=== PATIENT | male | born 1945 | race Caucasian/White ===

== ENCOUNTER 2018-05-22 11:08 | Inpatient (IN) | payer OTHER ==
[2018-05-22 11:22] VITALS: BMI 29.7
--- NOTE | 2018-05-22 14:15 | HP ---
COWS - Scale Resting Pulse: 1= [place] 81-100 Sweatin= Chills/Flushing Restless Observation: 1= Difficult to Sit Still Pupil Size: 0= Normal to Room Light Bone or Joint Aches: 1= Mild Discomfort Runny Nose/ Eye Tearin= Nasal Congestion GI Upset > 30mins: 2= Nausea/Diarrhea Tremor Observation: 2= Slight Tremor Visible Yawning Observation: 1= 1-2x During Session Anxiety or Irritability: 1=Feels Anxious/Irritable Goose Flesh Skin: 0=Smooth Skin COWS Score: 11 CIWA Score - CIWA Score Nausea/Vomitin Muscle Tremors: 4-Moderate,w/Arms Extend Anxiety: 4-Mod. Anxious/Guarded Agitation: 1-Slight > Activity Paroxysmal Sweats: No Perspiration Orientation: 1-Uncertain about Date Tacttile Disturbances: 0-None Auditory Disturbances: 0-None Visual Disturbances: 0-None Headache: 2-Mild CIWA-Ar Total Score: 15 Admission ROS [facility] - HPI Chief Complaint: I need help, I'm getting really sick, I need to get help. I can barely work. Allergies/Adverse Reactions: Allergies Allergy/AdvReac Type Severity Reaction Status Date / Time Penicillins Allergy Verified 05/22/18 13:10 History of Present Illness: 73 yo gentleman here for detox from opiates. Patient reports having dental surgery December 2017 and given opiates which he noticed helped his grief (from daughter's suicide). He was given alprazolam by primary doctor. States he wants help to get off both opiates and alprazolam. Denies seizures. He is devastated by 16year old daughter's suicide last year (hit by train). No black outs. Does have a history of being in 12 Step program of for sixteen years - not for alcohol use but had a history of heroin use in his 20s, relapsed with opiates in December 2017 when same was prescribed for him. Patient is prescribed opiates but started taking more than prescribed. He is shaky, nauseous, yawning. Exam Limitations: Clinical Condition - Ebola screening Have you traveled outside of the country in the last 21 days: No (N) Have you had contact with anyone from an Ebola affected area: No Have you been sick,other than usual withdrawal symptoms: No Do you have a fever: No - Review of Systems Constitutional: Loss of Appetite, Malaise, Changes in sleep EENT: reports: Blurred Vision, Tearing, Nose Congestion Respiratory: reports: No Symptoms reported Cardiac: reports: No Symptoms Reported GI: reports: Nausea, Poor Appetite : reports: Dysuria, Frequency Musculoskeletal: reports: Back Pain, Muscle Pain, Neck Pain Integumentary: reports: No Symptoms Reported Neuro: reports: Headache, Tremors Endocrine: reports: No Symptoms Reported Hematology: reports: No Symptoms Reported Psychiatric: reports: Judgement Intact, Mood/Affect Appropiate, Anxious Other Systems: Reviewed and Negative Patient History - Patient Medical History Hx Asthma: No Hx Chronic Obstructive Pulmonary Disease (COPD): No Hx Cancer: No Hx Cardiac Disorders: No Hx Congestive Heart Failure: No Hx Hypertension: Yes (163/123) Hx Hypercholesterolemia: Yes (on meds) Hx Pacemaker: No HX Cerebrovascular Accident: No Hx Seizures: No Hx Dementia: No Hx Diabetes: No Hx Gastrointestinal Disorders: Yes (colitis, GERD) Hx Liver Disease: No Hx Genitourinary Disorders: No Hx Sexually Transmitted Disorders: No Hx Renal Disease (ESRD): No Hx Thyroid Disease: No Hx Human Immunodeficiency Virus (HIV): No Hx Hepatitis C: No Hx Depression: Yes (anxiety 06/29/2017 [age] year old dtr committed suicide) Hx Suicide Attempt: No Hx Schizophrenia: No - Patient Surgical History Past Surgical History: Yes Hx Neurologic Surgery: No Hx Cataract Extraction: No Hx Cardiac Surgery: No Hx Lung Surgery: No Hx Breast Surgery: No Hx Breast Biopsy: No Hx Abdominal Surgery: No Hx Appendectomy: No Hx Cholecystectomy: No Hx Genitourinary Surgery: No Hx Section: No Hx Orthopedic Surgery: Yes (SPINAL FUSION OF L4+L5 ON 10/2003, RIGHT ELBOW FX AT 21YO) Anesthesia Reaction: No - PPD History Previous Implant?: Yes Documented Results: Negative w/o proof Implanted On Prior [facility] Admission?: No PPD to be Administered?: Yes - Reproductive History Patient is a Female of Child Bearing Age (11 -55 yrs old): No (male) - Smoking Cessation Smoking history: Former smoker Have you smoked in the past 12 months: No If you are a former smoker, when did you quit?: 1985 Cigars Per Day: 0 Hx Chewing Tobacco Use: No Initiated information on smoking cessation: No - Substance & Tx. History Hx Alcohol Use: No Hx Substance Use: Yes Substance Use Type: Opiates, Prescribed Hx Substance Use Treatment: No - Substances Abused Alprazolam (Xanax) Route: Oral Frequency: Daily Amount used: two 0.5MG TABLETS Age of first use: 73 Date of Last Use: 05/22/18 hydrocodone Route: Oral Frequency: Daily Amount used: twlve 7.5/325 MG TABLET Age of first use: 73 Date of Last Use: 05/21/18 Oxycodone Route: Oral Frequency: 3-6 times per week (s) Amount used: five 5 mg percocet Age of first use: 73 Date of Last Use: 05/21/18 Family Disease History - Family Disease History Family Disease History: Heart Disease: Mother (, etoh), Other: Father ( , renal disease), Mother, Sister (one - living ), Daughter (16 yr daughter committed suicide; also has healthy 19 yr old) Admission Physical Exam [facility] - Vital Signs Vital Signs: Vital Signs - 24 hr 05/22/18 11:19 Temperature 97.8 F Pulse Rate 80 Respiratory 18 Rate Blood Pressure 163/123 H - Physical General Appearance: Yes: Nourished, Appropriately Dressed, Moderate Distress, Tremorous, Anxious HEENTM: Yes: EOMI, Hearing grossly Normal, Normocephalic, Normal Voice, Pharynx Normal Respiratory: Yes: Normal Breath Sounds, No Respiratory Distress Neck: Yes: No masses,lesions,Nodules Breast: Yes: Breast Exam Deferred Cardiology: Yes: Regular Rhythm, Regular Rate Abdominal: Yes: Soft Genitourinary: Yes: Hesitency Back: Yes: Normal Inspection, Surgical Scar Musculoskeletal: Yes: full range of Motion, Gait Steady, Back pain, Muscle Pain Extremities: Yes: Normal Inspection, Normal Range of Motion, Non-Tender Neurological: Yes: Alert, Motor Strength 5/5, Normal Mood/Affect, Normal Response Integumentary: Yes: Normal Color, Warm Lymphatic: Yes: Within Normal Limits - Diagnostic (1) Opioid dependence with withdrawal Current Visit: Yes Status: Chronic (2) Sedative, hypnotic or anxiolytic dependence with withdrawal, uncomplicated Current Visit: Yes Status: Chronic (3) Colitis Current Visit: Yes Status: Chronic (4) High cholesterol Current Visit: Yes Status: Chronic (5) HTN (hypertension) Current Visit: Yes Status: Chronic Qualifiers: Hypertension type: essential hypertension Qualified Code(s): I10 - Essential (primary) hypertension (6) Neck pain, chronic Current Visit: Yes Status: Chronic (7) GERD (gastroesophageal reflux disease) Current Visit: Yes Status: Chronic Qualifiers: Esophagitis presence: esophagitis presence not specified Qualified Code(s) : K21.9 - Gastro-esophageal reflux disease without esophagitis Cleared for Admission [facility] - Detox or Rehab S Level of Care: Medically Managed Detox Regimen/Protocol: Methadone/Valium [facility] Breath Alcohol Content Breath Alcohol Content: 0 Urine Drug Screen - Results Drug Screen Negative: No Urine Drug Screen Results: OPI-Opiates, BZO-Benzodiazepines, OXY-Oxycodone
[2018-05-22] MEDS ORDERED: IBUPROFEN 400 MG TABLET (FP) PO PRN (14:30)
[2018-05-22] MEDS ORDERED: MENTHOL/PHENOL 1 EACH UD MM PRN (14:30)
[2018-05-22] MEDS ORDERED: MAGNESIUM CITRATE 300 ML BOTTLE PO PRN (14:30)
[2018-05-22] MEDS ORDERED: P-EPHED 60MG/TRIPROLIDI 2.5MG TABLET PO PRN (14:30)
[2018-05-22] MEDS ORDERED: MAGNESIUM HYDROX 2400MG/30ML ORAL SUSPENSION 30 ML CUP PO PRN (14:30)
[2018-05-22] MEDS ORDERED: guaiFENesin/D-METHORPHAN HB 10 ML UNIT-DOSE CUPS PO PRN (14:30)
[2018-05-22] MEDS ORDERED: METHADONE HCL 10 MG TABLET (FOR DETOX USE ONLY) PO ONE ×2 (16:45→23:00)
[2018-05-22] MEDS ORDERED: diazePAM 5 MG TABLET PO ONE (16:45)
[2018-05-22] MEDS ORDERED: MESALAMINE 1200 MG PO SCH (18:00)
[2018-05-22] MEDS: amLODIPine BESYLATE 5 MG TABLET (FP) PO SCH (19:30)
[2018-05-22] MEDS: PANTOPRAZOLE 40 MG TABLET (FP) PO SCH (19:32)
[2018-05-22] MEDS: QUINAPRIL HCL 40 MG TABLET (FP) PO SCH (19:32)
[2018-05-22] MEDS ORDERED: MESALAMINE 800 MG TABLET.DR PO SCH (22:00)
[2018-05-22] MEDS: THIAMINE HCL 100 MG TABLET (FP) PO SCH (22:18)
[2018-05-22] MEDS: ATORVASTATIN CA 10 MG TABLET (FP) PO SCH (22:19)
[2018-05-22] MEDS: diazePAM 5 MG TABLET PO SCH (22:19)
[2018-05-22] MEDS: ACYCLOVIR 400 MG TABLET PO SCH (22:20)
[2018-05-22] MEDS: MELATONIN 5 MG TABLETS PO PRN (22:20)
[2018-05-23] MEDS: diazePAM 5 MG TABLET PO PRN ×4 (00:30→17:48)
[2018-05-23] MEDS: diazePAM 5 MG TABLET PO SCH ×3 (05:33→22:14)
[2018-05-23] MEDS ORDERED: METHADONE HCL 10 MG TABLET (FOR DETOX USE ONLY) PO SCH (10:00)
[2018-05-23] MEDS: QUINAPRIL HCL 40 MG TABLET (FP) PO SCH (10:12)
[2018-05-23] MEDS: amLODIPine BESYLATE 5 MG TABLET (FP) PO SCH (10:13)
[2018-05-23] MEDS: PRENATAL VITAMINS W/ FOLIC ACID TABLET (FP) PO SCH (10:13)
[2018-05-23] MEDS: ACYCLOVIR 400 MG TABLET PO SCH ×2 (10:14→23:09)
[2018-05-23] MEDS: PANTOPRAZOLE 40 MG TABLET (FP) PO SCH (10:14)
--- NOTE | 2018-05-23 10:31 | CONSULT ---
[facility] Psychiatric Consult - Data Date of interview: 05/23/18 Admission source: [employer] Identifying data: Mr Morgan is a 73 years old [place]Citizen [place] male, father of a living 19 years old daughter, retired from post office, domiciled seeking detox treatment for opioid and benzodiazepine Substance Abuse History: Reports history of oxycodone, hydrocodone and xanax use. Refer to addiction counselor's summary for futher information Medical History: Significant for hypertension, dyslipidemia, GERD, ulcerative colitis, history of surgeries(spinal fusion L4, L5 in October 2003 and fracture right elbow in 2009). Psychiatric History: Reports seeing a psychologist for the past 10 years for marriage counseling. Reports that after one of his daughters commited suicide in 2016, he has been feeling depressed and started attending a suicide prevention group along with his . has history of depression and had successful ECT treatment in the past. Six months ago, he was started on opioid medication by one of his physician for pain and claims that helped somewhat with his depression. Two months ago. he was started on Xanax 0.5 mg po BID by another physician for depression/anxiety. Told adjusto writer operator that he became addicted to both and he could not stopped taking them without getting sick. Denies previous psychiatric hospitalization or suicidal attempt. At present, reports feeling depressed, anxious and sleeping poorly Physical/Sexual Abuse/Trauma History: Denies history of emotional, physical or sexual abuse as well as DV relationship. Reports serving in the [employer] from 1963- 1966. Told ramesh that his discharge was honorable Additional Comment: Reports history of one previous arrest on charges of disorderly conduct Mental Status Exam - Mental Status Exam Alert and Oriented to: Time, Place, Person Cognitive Function: Fair Patient Appearance: Well Groomed Mood: Depressed, Anxious Affect: Appropriate Patient Behavior: Cooperative Speech Pattern: Clear Voice Loudness: Normal Thought Process: Intact, Goal Oriented Thought Disorder: Not Present Hallucinations: Denies Suicidal Ideation: Denies Homicidal Ideation: Denies Insight/Judgement: Fair Sleep: Poorly Appetite: Fair Muscle strength/Tone: Normal Gait/Station: Normal Psychiatric Findings - Problem List ([place] 1, 2,3) (1) Grief reaction with prolonged bereavement Current Visit: Yes Status: Chronic (2) MDD (major depressive disorder) Current Visit: Yes Status: Ruled-out (3) Substance induced mood disorder Current Visit: Yes Status: Acute (4) Substance-induced sleep disorder Current Visit: Yes Status: Acute (5) Opioid dependence with withdrawal Current Visit: Yes Status: Acute (6) Sedative, hypnotic or anxiolytic dependence with withdrawal, uncomplicated Current Visit: Yes Status: Acute (7) Colitis Current Visit: Yes Status: Chronic (8) GERD (gastroesophageal reflux disease) Current Visit: Yes Status: Chronic Qualifiers: Esophagitis presence: esophagitis presence not specified Qualified Code(s) : K21.9 - Gastro-esophageal reflux disease without esophagitis (9) HTN (hypertension) Current Visit: Yes Status: Chronic Qualifiers: Hypertension type: essential hypertension Qualified Code(s): I10 - Essential (primary) hypertension (10) Dyslipidemia Current Visit: Yes Status: Chronic - Initial Treatment Plan Initial Treatment Plan: 1) Start Ambien 10 mg po HS prn for insomnia. 2) Continue inpatient detoxification
[2018-05-23 10:40] LABS: HEMATOCRIT 41.1 % (35.4-49); HEMOGLOBIN 14.5 GM/dL (11.7-16.9); MCH 33.6 pg (25.7-33.7); MCHC 35.3 g/dl (32.0-35.9); MEAN CELL VOLUME 95.1 fl (80-96); PLATELET COUNT 264 K/MM3 (134-434); RBC 4.32 M/mm3 (4.00-5.60); RDW 13.8 % (11.9-15.9)
[2018-05-23 11:00] LABS: ALBUMIN 4.3 g/dl (3.4-5.0); ALK PHOS 83 U/L (45-117); ANION GAP 8 MMOL/L (8-16); BILIRUBIN,TOTAL 1.1 mg/dL (0.2-1); BLOOD UREA NITROGEN 20 mg/dL (7-18); CALCIUM 9.2 mg/dL (8.5-10.1); CHLORIDE 101 mmol/L (98-107); CO2 29 mmol/L (21-32); CREATININE 1.6 mg/dL (0.55-1.3); GLUCOSE,RANDOM 89 mg/dL (74-106); POTASSIUM 4.4 mmol/L (3.5-5.1); SGOT/AST 25 U/L (15-37); SGPT/ALT 24 U/L (13-61); SODIUM 138 mmol/L (136-145); TOT PROT 7.5 g/dl (6.4-8.2)
--- NOTE | 2018-05-23 11:16 | PN ---
[facility] CIWA - CIWA Score Nausea/Vomitin-Mild Nausea/No Vomiting Muscle Tremors: 4-Moderate,w/Arms Extend Anxiety: 3 Agitation: 3 Paroxysmal Sweats: 1-Minimal Palms Moist Orientation: 1-Uncertain about Date Tacttile Disturbances: 0-None Auditory Disturbances: 0-None Visual Disturbances: 0-None Headache: 1-Very Mild CIWA-Ar Total Score: 14 S COWS - Scale Resting Pulse: 1= [place] 81-100 Sweatin= Chills/Flushing Restless Observation: 1= Difficult to Sit Still Pupil Size: 0= Normal to Room Light Bone or Joint Aches: 2= Severe Diffuse Aches Runny Nose/ Eye Tearin= Nasal Congestion GI Upset > 30mins: 2= Nausea/Diarrhea Tremor Observation of Outstretched Hands: 2= Slight Tremor Visible Yawning Observation: 1= 1-2x During Session Anxiety or Irritability: 1=Feels Anxious/Irritable Goose Flesh Skin: 0=Smooth Skin COWS Score: 12 S Progress Note (SOAP) Subjective: anxiety restlessness tremor sweat body aches Objective: 05/23/18 11:12 Vital Signs Temperature 96.8 F L 05/23/18 06:00 Pulse Rate 81 05/23/18 06:00 Respiratory Rate 18 05/23/18 06:00 Blood Pressure 132/91 05/23/18 06:00 O2 Sat by Pulse Oximetry (%) Laboratory Last Values WBC 7.0 K/mm3 (4.0-10.0) 05/23/18 07:44 RBC 4.32 M/mm3 (4.00-5.60) 05/23/18 07:44 Hgb 14.5 GM/dL (11.7-16.9) 05/23/18 07:44 Hct 41.1 % (35.4-49) 05/23/18 07:44 MCV 95.1 fl (80-96) 05/23/18 07:44 MCH 33.6 pg (25.7-33.7) 05/23/18 07:44 MCHC 35.3 g/dl (32.0-35.9) 05/23/18 07:44 RDW 13.8 % (11.9-15.9) 05/23/18 07:44 Plt Count 264 K/MM3 (134-434) 05/23/18 07:44 MPV 7.0 fl (7.5-11.1) L 05/23/18 07:44 Sodium 138 mmol/L (136-145) 05/23/18 07:44 Potassium 4.4 mmol/L (3.5-5.1) 05/23/18 07:44 Chloride 101 mmol/L (98-107) 05/23/18 07:44 Carbon Dioxide 29 mmol/L (21-32) 05/23/18 07:44 Anion Gap 8 MMOL/L (8-16) 05/23/18 07:44 BUN 20 mg/dL (7-18) H 05/23/18 07:44 Creatinine 1.6 mg/dL (0.55-1.3) H 05/23/18 07:44 Creat Clearance w eGFR 42.70 (>60) 05/23/18 07:44 Random Glucose 89 mg/dL (74-106) 05/23/18 07:44 Calcium 9.2 mg/dL (8.5-10.1) 05/23/18 07:44 Total Bilirubin 1.1 mg/dL (0.2-1) H 05/23/18 07:44 AST 25 U/L (15-37) 05/23/18 07:44 ALT 24 U/L (13-61) 05/23/18 07:44 Alkaline Phosphatase 83 U/L (45-117) 05/23/18 07:44 Total Protein 7.5 g/dl (6.4-8.2) 05/23/18 07:44 Albumin 4.3 g/dl (3.4-5.0) 05/23/18 07:44 lab noted repeat camp 05/23/18 11:15 Assessment: 05/23/18 11:15 withdrawal sx Plan: continue detox
--- NOTE | 2018-05-23 11:35 | EKG ---
Test Reason : Blood Pressure : / mmHG Vent. Rate : 089 BPM Atrial Rate : 089 BPM P-R Int : 162 ms QRS Dur : 078 ms QT Int : 342 ms P-R-T Axes : 066 -04 060 degrees QTc Int : 416 ms SINUS RHYTHM WITH PREMATURE ATRIAL COMPLEXES WITH ABERRANT CONDUCTION NONSPECIFIC ST ABNORMALITY ABNORMAL ECG NO PREVIOUS ECGS AVAILABLE Confirmed by RASHID MENDIETA MD ([id number]) on 05/23/2018 11:35:18 AM Referred By: Confirmed By:RASHID MENDIETA MD
[2018-05-23] MEDS ORDERED: FLU VACCINE QUAD 60 MCG/0.5 ML (MDV 18-19) IM ONE (12:00)
[2018-05-23] MEDS: ATORVASTATIN CA 10 MG TABLET (FP) PO SCH (22:14)
[2018-05-23] MEDS: ZOLPIDEM TARTRATE 5 MG TABLET PO PRN (22:14)
[2018-05-23] MEDS: THIAMINE HCL 100 MG TABLET (FP) PO SCH (22:14)
[2018-05-24] MEDS: diazePAM 5 MG TABLET PO PRN ×3 (05:59→18:09)
[2018-05-24] MEDS: PANTOPRAZOLE 40 MG TABLET (FP) PO SCH (10:07)
[2018-05-24] MEDS: QUINAPRIL HCL 40 MG TABLET (FP) PO SCH (10:07)
[2018-05-24] MEDS: diazePAM 5 MG TABLET PO SCH ×2 (10:07→22:19)
[2018-05-24] MEDS: amLODIPine BESYLATE 5 MG TABLET (FP) PO SCH (10:08)
[2018-05-24] MEDS: PRENATAL VITAMINS W/ FOLIC ACID TABLET (FP) PO SCH (10:08)
[2018-05-24] MEDS: ACYCLOVIR 400 MG TABLET PO SCH ×2 (10:08→22:19)
[2018-05-24] MEDS: METHADONE HCL 5 MG TABLET (FOR DETOX USE ONLY) PO SCH (10:10)
[2018-05-24] MEDS: MESALAMINE 800 MG TABLET.DR PO SCH ×3 (10:58→22:19)
--- NOTE | 2018-05-24 11:18 | PN ---
[facility] CIWA - CIWA Score Nausea/Vomitin-Mild Nausea/No Vomiting Muscle Tremors: 3 Anxiety: 2 Agitation: 2 Paroxysmal Sweats: 1-Minimal Palms Moist Orientation: 0-Oriented Tacttile Disturbances: 1-Very Mild Itch/Numbness Auditory Disturbances: 0-None Visual Disturbances: 0-None Headache: 1-Very Mild CIWA-Ar Total Score: 11 [facility] COWS - Scale Resting Pulse: 2= [place] 101-120 Sweatin= Chills/Flushing Restless Observation: 1= Difficult to Sit Still Pupil Size: 0= Normal to Room Light Bone or Joint Aches: 1= Mild Discomfort Runny Nose/ Eye Tearin= Nasal Congestion GI Upset > 30mins: 2= Nausea/Diarrhea Tremor Observation of Outstretched Hands: 1= Tremor [place], Not Seen Yawning Observation: 1= 1-2x During Session Anxiety or Irritability: 1=Feels Anxious/Irritable Goose Flesh Skin: 0=Smooth Skin COWS Score: 11 [facility] Progress Note (SOAP) Subjective: patient request stay longer that estimated discharge date is 05/27/18 emotional endurance given issue can be discussed daily patient stated that he has engineering technical writer's name that other person wrote down for him patient shown two pieces of paper wrote engineering technical writer's name discuss relaxation ensure issue can be discuss sweat tremor body aches anxiety Objective: 05/24/18 11:32 Vital Signs Temperature 97.0 F L 05/24/18 09:16 Pulse Rate 103 H 05/24/18 09:16 Respiratory Rate 18 05/24/18 09:16 Blood Pressure 138/85 05/24/18 09:16 O2 Sat by Pulse Oximetry (%) Laboratory Last Values WBC 7.0 K/mm3 (4.0-10.0) 05/23/18 07:44 RBC 4.32 M/mm3 (4.00-5.60) 05/23/18 07:44 Hgb 14.5 GM/dL (11.7-16.9) 05/23/18 07:44 Hct 41.1 % (35.4-49) 05/23/18 07:44 MCV 95.1 fl (80-96) 05/23/18 07:44 MCH 33.6 pg (25.7-33.7) 05/23/18 07:44 MCHC 35.3 g/dl (32.0-35.9) 05/23/18 07:44 RDW 13.8 % (11.9-15.9) 05/23/18 07:44 Plt Count 264 K/MM3 (134-434) 05/23/18 07:44 MPV 7.0 fl (7.5-11.1) L 05/23/18 07:44 Sodium 137 mmol/L (136-145) 05/24/18 07:40 Potassium 4.6 mmol/L (3.5-5.1) 05/24/18 07:40 Chloride 100 mmol/L (98-107) 05/24/18 07:40 Carbon Dioxide 28 mmol/L (21-32) 05/24/18 07:40 Anion Gap 9 MMOL/L (8-16) 05/24/18 07:40 BUN 24 mg/dL (7-18) H 05/24/18 07:40 Creatinine 1.4 mg/dL (0.55-1.3) H 05/24/18 07:40 Creat Clearance w eGFR 49.82 (>60) 05/24/18 07:40 Random Glucose 90 mg/dL (74-106) 05/24/18 07:40 Calcium 9.1 mg/dL (8.5-10.1) 05/24/18 07:40 Total Bilirubin 0.7 mg/dL (0.2-1) 05/24/18 07:40 AST 22 U/L (15-37) 05/24/18 07:40 ALT 23 U/L (13-61) 05/24/18 07:40 Alkaline Phosphatase 92 U/L (45-117) 05/24/18 07:40 Total Protein 7.2 g/dl (6.4-8.2) 05/24/18 07:40 Albumin 4.1 g/dl (3.4-5.0) 05/24/18 07:40 RPR Titer Nonreactive (NONREACTIVE) 05/23/18 07:44 lab noted 05/24/18 11:33 encourage oral fluid Assessment: 05/24/18 11:34 withdrawal sx 05/24/18 11:36 received pharmacist called that [facility] does not have Lialda 1.2 gm qid case discuss with the patient that the patient does not have his own medication with him upon admission pharmacist discontinue "patient's own med" begin asacol HD 800 mg two tabs tid that the medication available at [facility] encourage the patient to bring in own medication encourage the patient to contact with his Liaalvaroa presciber if the patient prefer his own medication 05/24/18 11:37 Plan: continue detox
[2018-05-24 11:21] LABS: ALBUMIN 4.1 g/dl (3.4-5.0); ALK PHOS 92 U/L (45-117); ANION GAP 9 MMOL/L (8-16); BILIRUBIN,TOTAL 0.7 mg/dL (0.2-1); BLOOD UREA NITROGEN 24 mg/dL (7-18); CALCIUM 9.1 mg/dL (8.5-10.1); CHLORIDE 100 mmol/L (98-107); CO2 28 mmol/L (21-32); CREATININE 1.4 mg/dL (0.55-1.3); GLUCOSE,RANDOM 90 mg/dL (74-106); POTASSIUM 4.6 mmol/L (3.5-5.1); SGOT/AST 22 U/L (15-37); SGPT/ALT 23 U/L (13-61); SODIUM 137 mmol/L (136-145); TOT PROT 7.2 g/dl (6.4-8.2)
[2018-05-24] MEDS: THIAMINE HCL 100 MG TABLET (FP) PO SCH (22:19)
[2018-05-24] MEDS: ATORVASTATIN CA 10 MG TABLET (FP) PO SCH (22:19)
[2018-05-24] MEDS: ACETAMINOPHEN 325 MG TABLET (FP) PO PRN (22:23)
[2018-05-24] MEDS: ZOLPIDEM TARTRATE 5 MG TABLET PO PRN (22:23)
[2018-05-25] MEDS: MESALAMINE 800 MG TABLET.DR PO SCH ×3 (07:00→22:13)
[2018-05-25] MEDS: diazePAM 5 MG TABLET PO PRN (07:56)
[2018-05-25] MEDS: ACYCLOVIR 400 MG TABLET PO SCH ×2 (10:12→22:13)
[2018-05-25] MEDS: amLODIPine BESYLATE 5 MG TABLET (FP) PO SCH (10:12)
[2018-05-25] MEDS: METHADONE HCL 5 MG TABLET (FOR DETOX USE ONLY) PO SCH (10:12)
[2018-05-25] MEDS: PANTOPRAZOLE 40 MG TABLET (FP) PO SCH (10:12)
[2018-05-25] MEDS: diazePAM 5 MG TABLET PO SCH ×2 (10:13→22:13)
[2018-05-25] MEDS: PRENATAL VITAMINS W/ FOLIC ACID TABLET (FP) PO SCH (10:13)
[2018-05-25] MEDS: QUINAPRIL HCL 40 MG TABLET (FP) PO SCH (10:13)
--- NOTE | 2018-05-25 11:07 | PN ---
[facility] Progress Note (SOAP) Subjective: anxiety joints pain muscle aches restlessness wants to stay longer for detox counselor singer songwriter and patient discuss aftercare revelation Objective: 05/25/18 11:06 Vital Signs Temperature 97.9 F 05/25/18 09:34 Pulse Rate 80 05/25/18 09:34 Respiratory Rate 18 05/25/18 09:34 Blood Pressure 124/85 05/25/18 09:34 O2 Sat by Pulse Oximetry (%) Laboratory Last Values WBC 7.0 K/mm3 (4.0-10.0) 05/23/18 07:44 RBC 4.32 M/mm3 (4.00-5.60) 05/23/18 07:44 Hgb 14.5 GM/dL (11.7-16.9) 05/23/18 07:44 Hct 41.1 % (35.4-49) 05/23/18 07:44 MCV 95.1 fl (80-96) 05/23/18 07:44 MCH 33.6 pg (25.7-33.7) 05/23/18 07:44 MCHC 35.3 g/dl (32.0-35.9) 05/23/18 07:44 RDW 13.8 % (11.9-15.9) 05/23/18 07:44 Plt Count 264 K/MM3 (134-434) 05/23/18 07:44 MPV 7.0 fl (7.5-11.1) L 05/23/18 07:44 Sodium 137 mmol/L (136-145) 05/24/18 07:40 Potassium 4.6 mmol/L (3.5-5.1) 05/24/18 07:40 Chloride 100 mmol/L (98-107) 05/24/18 07:40 Carbon Dioxide 28 mmol/L (21-32) 05/24/18 07:40 Anion Gap 9 MMOL/L (8-16) 05/24/18 07:40 BUN 24 mg/dL (7-18) H 05/24/18 07:40 Creatinine 1.4 mg/dL (0.55-1.3) H 05/24/18 07:40 Creat Clearance w eGFR 49.82 (>60) 05/24/18 07:40 Random Glucose 90 mg/dL (74-106) 05/24/18 07:40 Calcium 9.1 mg/dL (8.5-10.1) 05/24/18 07:40 Total Bilirubin 0.7 mg/dL (0.2-1) 05/24/18 07:40 AST 22 U/L (15-37) 05/24/18 07:40 ALT 23 U/L (13-61) 05/24/18 07:40 Alkaline Phosphatase 92 U/L (45-117) 05/24/18 07:40 Total Protein 7.2 g/dl (6.4-8.2) 05/24/18 07:40 Albumin 4.1 g/dl (3.4-5.0) 05/24/18 07:40 RPR Titer Nonreactive (NONREACTIVE) 05/23/18 07:44 lab noted Assessment: 05/25/18 11:06 withdrawal sx Plan: continue detox
[2018-05-25] MEDS ORDERED: hydrOXYzine PAMOATE 50 MG CAPSULE (FP) PO ONE (14:15)
[2018-05-25] MEDS: THIAMINE HCL 100 MG TABLET (FP) PO SCH (22:13)
[2018-05-25] MEDS: ATORVASTATIN CA 10 MG TABLET (FP) PO SCH (22:13)
[2018-05-25] MEDS: ZOLPIDEM TARTRATE 5 MG TABLET PO PRN (22:15)
[2018-05-26] MEDS: MESALAMINE 800 MG TABLET.DR PO SCH ×3 (06:17→22:21)
[2018-05-26] MEDS ORDERED: METHADONE HCL 10 MG TABLET (FOR DETOX USE ONLY) PO SCH (10:00)
[2018-05-26] MEDS ORDERED: diazePAM 5 MG TABLET PO SCH (10:00)
[2018-05-26] MEDS: PRENATAL VITAMINS W/ FOLIC ACID TABLET (FP) PO SCH (10:31)
[2018-05-26] MEDS: QUINAPRIL HCL 40 MG TABLET (FP) PO SCH (10:31)
[2018-05-26] MEDS: amLODIPine BESYLATE 5 MG TABLET (FP) PO SCH (10:32)
[2018-05-26] MEDS: ACYCLOVIR 400 MG TABLET PO SCH ×2 (10:32→22:21)
[2018-05-26] MEDS: PANTOPRAZOLE 40 MG TABLET (FP) PO SCH (10:33)
--- NOTE | 2018-05-26 11:52 | PN ---
[facility] Progress Note (SOAP) Subjective: feeling better no tremor less sweat social with peers in day room sleep better at night Objective: 05/26/18 11:51 Vital Signs Temperature 97 F L 05/26/18 07:56 Pulse Rate 67 05/26/18 07:56 Respiratory Rate 20 05/26/18 07:56 Blood Pressure 129/71 05/26/18 07:56 O2 Sat by Pulse Oximetry (%) Laboratory Last Values WBC 7.0 K/mm3 (4.0-10.0) 05/23/18 07:44 RBC 4.32 M/mm3 (4.00-5.60) 05/23/18 07:44 Hgb 14.5 GM/dL (11.7-16.9) 05/23/18 07:44 Hct 41.1 % (35.4-49) 05/23/18 07:44 MCV 95.1 fl (80-96) 05/23/18 07:44 MCH 33.6 pg (25.7-33.7) 05/23/18 07:44 MCHC 35.3 g/dl (32.0-35.9) 05/23/18 07:44 RDW 13.8 % (11.9-15.9) 05/23/18 07:44 Plt Count 264 K/MM3 (134-434) 05/23/18 07:44 MPV 7.0 fl (7.5-11.1) L 05/23/18 07:44 Sodium 137 mmol/L (136-145) 05/24/18 07:40 Potassium 4.6 mmol/L (3.5-5.1) 05/24/18 07:40 Chloride 100 mmol/L (98-107) 05/24/18 07:40 Carbon Dioxide 28 mmol/L (21-32) 05/24/18 07:40 Anion Gap 9 MMOL/L (8-16) 05/24/18 07:40 BUN 24 mg/dL (7-18) H 05/24/18 07:40 Creatinine 1.4 mg/dL (0.55-1.3) H 05/24/18 07:40 Creat Clearance w eGFR 49.82 (>60) 05/24/18 07:40 Random Glucose 90 mg/dL (74-106) 05/24/18 07:40 Calcium 9.1 mg/dL (8.5-10.1) 05/24/18 07:40 Total Bilirubin 0.7 mg/dL (0.2-1) 05/24/18 07:40 AST 22 U/L (15-37) 05/24/18 07:40 ALT 23 U/L (13-61) 05/24/18 07:40 Alkaline Phosphatase 92 U/L (45-117) 05/24/18 07:40 Total Protein 7.2 g/dl (6.4-8.2) 05/24/18 07:40 Albumin 4.1 g/dl (3.4-5.0) 05/24/18 07:40 RPR Titer Nonreactive (NONREACTIVE) 05/23/18 07:44 lab noted Assessment: 05/26/18 11:51 mild withdrawal sx Plan: medically supervised detox
[2018-05-26] MEDS: ATORVASTATIN CA 10 MG TABLET (FP) PO SCH (22:21)
[2018-05-26] MEDS: THIAMINE HCL 100 MG TABLET (FP) PO SCH (22:21)
[2018-05-27] MEDS: MESALAMINE 800 MG TABLET.DR PO SCH ×3 (05:23→21:49)
[2018-05-27] MEDS ORDERED: METHADONE HCL 5 MG TABLET (FOR DETOX USE ONLY) PO SCH (06:00)
[2018-05-27] MEDS: PANTOPRAZOLE 40 MG TABLET (FP) PO SCH (10:25)
[2018-05-27] MEDS: ACYCLOVIR 400 MG TABLET PO SCH ×2 (10:25→21:45)
[2018-05-27] MEDS: amLODIPine BESYLATE 5 MG TABLET (FP) PO SCH (10:25)
[2018-05-27] MEDS: PRENATAL VITAMINS W/ FOLIC ACID TABLET (FP) PO SCH (10:25)
[2018-05-27] MEDS: QUINAPRIL HCL 40 MG TABLET (FP) PO SCH (10:25)
--- NOTE | 2018-05-27 13:57 | HP ---
[facility] Rehab Assess/Revision - Admission History Admitted to Rehab from: [facility] [place] Date of Admission to Rehab: 05/27/18 - Vital signs Vital Signs: Vital Signs Period Temp Pulse Resp BP Sys/Guerin Pulse Ox Last 24 Hr 97.7 F-98.2 F 74-86 16-18 120-146/73-95 - Findings Detox History & Physical reviewed: Yes Concur with findings: Yes Comments/Additional Findings: transferred from detox to rehab admission as per protocol Inpatient Rehab Admission - Initial Determination Are CD services needed?: Yes Free of communicable disease: Yes Not in need of hospitalization: Yes - Rehab Admission Criteria Previous failed treatment: Yes Poor recovery environment: Yes Comorbidities: Yes Lacks judgement: No Patient is meeting Inpatient Rehab admission criteria:: Yes
--- NOTE | 2018-05-27 16:39 | HP ---
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 This is patient's first admission to rehab at [facility]. Patient admitted to rehab for opioid dependence. Medical History: Significant for hypertension, dyslipidemia, GERD, ulcerative colitis, history of surgeries(spinal fusion L4, L5 in October 2003 and fracture right elbow in 2009 Psychiatric History: Patient presents as sad and tearful. Patient's 16 y/o daughter committed suicide in June of 2016. A month after his daughter's suicide he started to attend a suicide prevention group with . Patient reports a family history of major depression disorder. His is currently diagnosed with major depression disorder and has received ECT treatment in the past. Several months ago patient was started on percocet secondary to neck pain and he noticed that it helped him with his depression which eventually caused him to become addicted to the medication. Few months after, his PCP prescribed him xanac for anxiety. Patient has tried lexapro for depression/ anxiety but states it made him feel horrible. At present, patient reports feeling sad and difficulty sleeping. He denies h/o suicide attempt. Physical/Sexual Abuse/Trauma History: denies. Vital Signs: Vital Signs - 24 hr 05/26/18 05/26/18 05/27/18 17:40 22:01 00:30 Temperature 98.2 F 97.9 F Pulse Rate 79 74 Respiratory 16 18 18 Rate Blood Pressure 146/90 142/95 05/27/18 05/27/18 05/27/18 03:30 07:25 09:48 Temperature 97.9 F 97.9 F Pulse Rate 86 77 Respiratory 18 18 18 Rate Blood Pressure 138/91 120/82 05/27/18 13:29 Temperature 98 F Pulse Rate 79 Respiratory 18 Rate Blood Pressure 140/89 Allergies/Adverse Reactions: Allergies Allergy/AdvReac Type Severity Reaction Status Date / Time Penicillins Allergy Verified 05/22/18 13:10 Date of last physical exam: 05/22/18 Concur with the findings of this exam: Yes - Substance Abuse/Tx History Hx Alcohol Use: No Hx Substance Use: Yes Substance Use Type: Opiates Hx Substance Use Treatment: No (This is patient's first rehab.) Mental Status Exam - Mental Status Exam Alert and Oriented to: Time, Place, Person Cognitive Function: Good Patient Appearance: Well Groomed Mood: Sad, Hopeful, Euthymic Affect: Appropriate, Mood Congruent Patient Behavior: Appropriate, Cooperative Speech Pattern: Clear, Appropriate Voice Loudness: Normal Thought Process: Goal Oriented Thought Disorder: Not Present Hallucinations: Denies Suicidal Ideation: Denies Homicidal Ideation: Denies Insight/Judgement: Poor Sleep: Poorly Appetite: Fair Muscle strength/Tone: Normal Gait/Station: Normal Psychiatric Findings - Problem List (Emery 1, 2,3) (1) Opioid dependence Current Visit: Yes Status: Acute (2) Sedative hypnotic or anxiolytic dependence Current Visit: Yes Status: Acute (3) Substance induced mood disorder Current Visit: Yes Status: Acute (4) Substance-induced sleep disorder Current Visit: Yes Status: Acute (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 Detoxification in progress. Will order trazodone 25mg. Benefits and side effects discussed. Patient made aware of the risk of priapism when accepting trazodone. Vebral consent given.
[2018-05-27] MEDS: ATORVASTATIN CA 10 MG TABLET (FP) PO SCH (21:45)
[2018-05-27] MEDS: THIAMINE HCL 100 MG TABLET (FP) PO SCH (21:45)
[2018-05-27] MEDS: MELATONIN 5 MG TABLETS PO PRN (21:46)
[2018-05-27] MEDS ORDERED: traZODone HCL 50 MG TABLET (FP) PO SCH (22:00)
[2018-05-28] MEDS: MESALAMINE 800 MG TABLET.DR PO SCH ×3 (07:39→21:45)
[2018-05-28] MEDS: amLODIPine BESYLATE 5 MG TABLET (FP) PO SCH (10:29)
[2018-05-28] MEDS: PRENATAL VITAMINS W/ FOLIC ACID TABLET (FP) PO SCH (10:29)
[2018-05-28] MEDS: PANTOPRAZOLE 40 MG TABLET (FP) PO SCH (10:29)
[2018-05-28] MEDS: ACYCLOVIR 400 MG TABLET PO SCH ×2 (10:29→21:44)
[2018-05-28] MEDS: QUINAPRIL HCL 40 MG TABLET (FP) PO SCH (12:09)
[2018-05-28] MEDS: LOPERAMIDE HCL 2 MG CAPSULE PO PRN (13:14)
--- NOTE | 2018-05-28 14:05 | PN ---
[facility] Progress Note Note: Pt would like suboxone for h/o opiod use- has diarrhea Vital Signs - 24 hr 05/28/18 05/28/18 05/28/18 00:51 04:30 07:05 Temperature 97.9 F Pulse Rate 65 Respiratory 18 18 18 Rate Blood Pressure 128/84 05/28/18 10:00 Temperature Pulse Rate 75 Respiratory Rate Blood Pressure 141/82 a/p: start suboxone 8mg/day and increase as needed
[2018-05-28] MEDS: BUPRENORPHINE/NALOXONE 8 MG/2 MG FILM PACKET SL SCH (14:44)
--- NOTE | 2018-05-28 15:42 | PN ---
S Progress Note Note: Psychiatric nurse practitioner: Patient reports anxiety on the unit. No anti-anxiety medications currently ordered. Will order vistaril 25mg q4h for anxiety. Will also increase trazodone dose to 50mg qhs.
[2018-05-28] MEDS: ATORVASTATIN CA 10 MG TABLET (FP) PO SCH (21:44)
[2018-05-28] MEDS: THIAMINE HCL 100 MG TABLET (FP) PO SCH (21:44)
[2018-05-28] MEDS: traZODone HCL 50 MG TABLET (FP) PO SCH (21:44)
[2018-05-28] MEDS: MELATONIN 5 MG TABLETS PO PRN (21:46)
[2018-05-28] MEDS ORDERED: traZODone HCL 50 MG TABLET (FP) PO SCH (22:00)
[2018-05-29] MEDS: MESALAMINE 800 MG TABLET.DR PO SCH ×3 (06:33→21:48)
[2018-05-29] MEDS: BUPRENORPHINE/NALOXONE 8 MG/2 MG FILM PACKET SL SCH (10:22)
[2018-05-29] MEDS: PANTOPRAZOLE 40 MG TABLET (FP) PO SCH (10:23)
[2018-05-29] MEDS: PRENATAL VITAMINS W/ FOLIC ACID TABLET (FP) PO SCH (10:23)
[2018-05-29] MEDS: amLODIPine BESYLATE 5 MG TABLET (FP) PO SCH (10:23)
[2018-05-29] MEDS: ACYCLOVIR 400 MG TABLET PO SCH (10:23)
[2018-05-29] MEDS: QUINAPRIL HCL 40 MG TABLET (FP) PO SCH (10:24)
[2018-05-29] MEDS: hydrOXYzine PAMOATE 25 MG CAPSULE (FP) PO PRN ×3 (10:26→21:48)
[2018-05-29] MEDS: THIAMINE HCL 100 MG TABLET (FP) PO SCH (21:47)
[2018-05-29] MEDS: traZODone HCL 50 MG TABLET (FP) PO SCH (21:47)
[2018-05-29] MEDS: ATORVASTATIN CA 10 MG TABLET (FP) PO SCH (21:47)
[2018-05-29] MEDS: MELATONIN 5 MG TABLETS PO PRN (21:49)
[2018-05-30] MEDS: hydrOXYzine PAMOATE 25 MG CAPSULE (FP) PO PRN ×4 (02:19→21:44)
[2018-05-30] MEDS: LOPERAMIDE HCL 2 MG CAPSULE PO PRN ×2 (05:47→14:45)
[2018-05-30] MEDS: MESALAMINE 800 MG TABLET.DR PO SCH ×3 (06:25→21:44)
[2018-05-30] MEDS: BUPRENORPHINE/NALOXONE 8 MG/2 MG FILM PACKET SL SCH (10:03)
[2018-05-30] MEDS: amLODIPine BESYLATE 5 MG TABLET (FP) PO SCH (10:03)
[2018-05-30] MEDS: PANTOPRAZOLE 40 MG TABLET (FP) PO SCH (10:03)
[2018-05-30] MEDS: PRENATAL VITAMINS W/ FOLIC ACID TABLET (FP) PO SCH (10:03)
[2018-05-30] MEDS: QUINAPRIL HCL 40 MG TABLET (FP) PO SCH (10:04)
[2018-05-30] MEDS: ATORVASTATIN CA 10 MG TABLET (FP) PO SCH (21:44)
[2018-05-30] MEDS: traZODone HCL 50 MG TABLET (FP) PO SCH (21:44)
[2018-05-30] MEDS: THIAMINE HCL 100 MG TABLET (FP) PO SCH (21:44)
[2018-05-30] MEDS: MELATONIN 5 MG TABLETS PO PRN (21:45)
[2018-05-31] MEDS: LOPERAMIDE HCL 2 MG CAPSULE PO PRN ×2 (00:59→11:18)
[2018-05-31] MEDS: ACETAMINOPHEN 325 MG TABLET (FP) PO PRN (03:28)
[2018-05-31] MEDS: MESALAMINE 800 MG TABLET.DR PO SCH ×3 (06:57→22:03)
[2018-05-31] MEDS: BUPRENORPHINE/NALOXONE 8 MG/2 MG FILM PACKET SL SCH (10:41)
[2018-05-31] MEDS: PRENATAL VITAMINS W/ FOLIC ACID TABLET (FP) PO SCH (10:41)
[2018-05-31] MEDS: PANTOPRAZOLE 40 MG TABLET (FP) PO SCH (10:41)
[2018-05-31] MEDS: amLODIPine BESYLATE 5 MG TABLET (FP) PO SCH (10:43)
[2018-05-31] MEDS: QUINAPRIL HCL 40 MG TABLET (FP) PO SCH (10:43)
--- NOTE | 2018-05-31 11:16 | PN ---
[facility] Progress Note Note: Pt on suboxone here- started 2 days ago.Doing well. Says that the dose is sufficient. Pt states he would like to continue with methadone at discharge- pt will talk to counselor re enrolling in program in [place]. Pt reaffirms that he will not continue with the oxycodone that he has been recieving by his PCP. pt had been receiving percocets from PCP following the of his daughter- pt states that he will continue methadone only- has been on this in the past in a program in the [place]. Others' Prescriptions Patient Name: Ziggy Morgan Date: 1945 Address: [address] [place] [address] Sex: Male Rx Written Rx Dispensed Drug Quantity Days Supply Prescriber Name 05/03/2018 05/03/2018 alprazolam 0.5 mg tablet 60 30 Charles Amos 04/30/2018 04/30/2018 diazepam 5 mg tablet 2 1 Casey Alfonso 04/30/2018 04/30/2018 hydrocodone-acetaminophen 7.5-325 mg tablet 90 30 Casey Alfonso 04/06/2018 04/06/2018 hydrocodone-acetaminophen 7.5-325 mg tablet 60 30 Angel Gaxiola MD 03/23/2018 03/23/2018 oxycodone-acetaminophen 5-325 mg tab 60 30 Angel Gaxiola MD 03/15/2018 03/15/2018 alprazolam 0.5 mg tablet 60 30 Charles Amos 02/26/2018 02/27/2018 oxycodone-acetaminophen 5-325 mg tablet 12 1 Elia Meyers DDS 02/19/2018 02/20/2018 oxycodone-acetaminophen 5-325 mg tablet 30 3 Eder Ortega DDS 02/12/2018 02/13/2018 oxycodone-acetaminophen 5-325 mg tablet 30 3 Eder Ortega DDS 02/08/2018 02/08/2018 oxycodone-acetaminophen 5-325 mg tablet 16 1 Elia Meyers DDS 02/05/2018 02/05/2018 oxycodone-acetaminophen 5-325 mg tablet 25 3 Eder Ortega DDS 02/03/2018 02/03/2018 oxycodone-acetaminophen 5-325 mg tablet 10 2 Taurus Vaz DDS 01/29/2018 01/29/2018 oxycodone-acetaminophen 5-325 mg tablet 25 3 Eder Ortega DDS
[2018-05-31] MEDS: hydrOXYzine PAMOATE 25 MG CAPSULE (FP) PO PRN (14:43)
[2018-05-31] MEDS: ATORVASTATIN CA 10 MG TABLET (FP) PO SCH (22:03)
[2018-05-31] MEDS: traZODone HCL 50 MG TABLET (FP) PO SCH (22:03)
[2018-05-31] MEDS: THIAMINE HCL 100 MG TABLET (FP) PO SCH (22:04)
[2018-05-31] MEDS: MELATONIN 5 MG TABLETS PO PRN (22:05)
[2018-06-01] MEDS: MESALAMINE 800 MG TABLET.DR PO SCH ×3 (06:12→21:40)
[2018-06-01] MEDS: PANTOPRAZOLE 40 MG TABLET (FP) PO SCH (10:48)
[2018-06-01] MEDS: PRENATAL VITAMINS W/ FOLIC ACID TABLET (FP) PO SCH (10:48)
[2018-06-01] MEDS: BUPRENORPHINE/NALOXONE 8 MG/2 MG FILM PACKET SL SCH (10:49)
[2018-06-01] MEDS: amLODIPine BESYLATE 5 MG TABLET (FP) PO SCH (10:49)
[2018-06-01] MEDS: QUINAPRIL HCL 40 MG TABLET (FP) PO SCH (10:50)
--- NOTE | 2018-06-01 15:30 | PN ---
[facility] Progress Note Note: PT C/O SEVERE CHRONIC DIARRHEA MULTIPLE TIMES DURING THE DAY PT ALSO C/O DRY MOUTH BUT SAYS HE IS DRINKING ENOUGH FLUIDS . REPORTS IMODIUM NOT EFFECTIVE. PT REPORTS HX OF ULCERATIVE COLITIS AND TAKES IMODIUM AT HOME A ROUTINE. PT ALSO STATES HX OF SEVERE ACID REFLUX. PT STATES HE HAS A PRIMARY CARE DOCTOR, DR. MARINO ANTONY AND A GI DOCTOR, DR. NIKO NELSON- A TEAM IN [place], [place] THAT MANAGES HIS CARE. Vital Signs - 24 hr 06/01/18 06/01/18 06/01/18 00:30 03:30 07:09 Temperature 97.8 F Pulse Rate 94 H Respiratory 18 18 17 Rate Blood Pressure 156/85 Laboratory Tests 05/23/18 05/23/18 05/23/18 07:44 07:44 07:44 WBC 7.0 RBC 4.32 Hgb 14.5 Hct 41.1 MCV 95.1 MCH 33.6 MCHC 35.3 RDW 13.8 Plt Count 264 MPV 7.0 L Sodium 138 Potassium 4.4 Chloride 101 Carbon Dioxide 29 Anion Gap 8 BUN 20 H Creatinine 1.6 H Creat Clearance w eGFR 42.70 Random Glucose 89 Calcium 9.2 Total Bilirubin 1.1 H AST 25 ALT 24 Alkaline Phosphatase 83 Total Protein 7.5 Albumin 4.3 RPR Titer Nonreactive 05/24/18 07:40 WBC RBC Hgb Hct MCV MCH MCHC RDW Plt Count MPV Sodium 137 Potassium 4.6 Chloride 100 Carbon Dioxide 28 Anion Gap 9 BUN 24 H Creatinine 1.4 H Creat Clearance w eGFR 49.82 Random Glucose 90 Calcium 9.1 Total Bilirubin 0.7 AST 22 ALT 23 Alkaline Phosphatase 92 Total Protein 7.2 Albumin 4.1 RPR Titer SLIGHT YELLOWING OF SKIN SCLERA SLIGHTLY ICTERIC HX UC HX JAUNDICE IN THE PAST PLAN:IMODIUM PRN MONITOR PT STATUS FLUIDS TOLERATED FOLLOW UP WITH WORSENING SYMPTOMS
[2018-06-01] MEDS: LOPERAMIDE HCL 2 MG CAPSULE PO PRN (16:06)
[2018-06-01] MEDS: MAG HYDROX/AL HYDROX/SIMETH 30 ML UNIT-DOSE CUP PO PRN (16:15)
[2018-06-01] MEDS: ATORVASTATIN CA 10 MG TABLET (FP) PO SCH (21:40)
[2018-06-01] MEDS: THIAMINE HCL 100 MG TABLET (FP) PO SCH (21:40)
[2018-06-01] MEDS: traZODone HCL 50 MG TABLET (FP) PO SCH (21:40)
[2018-06-01] MEDS: MELATONIN 5 MG TABLETS PO PRN (21:40)
[2018-06-01] MEDS: hydrOXYzine PAMOATE 25 MG CAPSULE (FP) PO PRN (21:40)
[2018-06-02] MEDS: MESALAMINE 800 MG TABLET.DR PO SCH ×2 (07:00→13:20)
[2018-06-02] MEDS: MAG HYDROX/AL HYDROX/SIMETH 30 ML UNIT-DOSE CUP PO PRN ×2 (07:02→13:21)
[2018-06-02] MEDS: hydrOXYzine PAMOATE 25 MG CAPSULE (FP) PO PRN (07:04)
[2018-06-02 10:22] LABS: ALBUMIN 3.8 g/dl (3.4-5.0); ALK PHOS 66 U/L (45-117); ANION GAP 13 MMOL/L (8-16); BILIRUBIN,TOTAL 1.2 mg/dL (0.2-1); BLOOD UREA NITROGEN 53 mg/dL (7-18); CALCIUM 9.3 mg/dL (8.5-10.1); CHLORIDE 102 mmol/L (98-107); CO2 21 mmol/L (21-32); GLUCOSE,RANDOM 104 mg/dL (74-106); POTASSIUM 4.2 mmol/L (3.5-5.1); SGOT/AST 31 U/L (15-37); SGPT/ALT 26 U/L (13-61); SODIUM 136 mmol/L (136-145); TOT PROT 7.2 g/dl (6.4-8.2)
[2018-06-02] MEDS: PANTOPRAZOLE 40 MG TABLET (FP) PO SCH (10:36)
[2018-06-02] MEDS: amLODIPine BESYLATE 5 MG TABLET (FP) PO SCH (10:39)
[2018-06-02] MEDS: QUINAPRIL HCL 40 MG TABLET (FP) PO SCH (10:39)
[2018-06-02] MEDS: BUPRENORPHINE/NALOXONE 8 MG/2 MG FILM PACKET SL SCH (10:40)
[2018-06-02] MEDS: PRENATAL VITAMINS W/ FOLIC ACID TABLET (FP) PO SCH (10:42)
[2018-06-02] MEDS: LOPERAMIDE HCL 2 MG CAPSULE PO PRN (10:53)
--- NOTE | 2018-06-02 12:49 | PN ---
[facility] Progress Note Note: PT IS A 73 Y/O MALE ADMITTED TO REHAB AFTER COMPLETING DETOX ON ON 05/27. PT HAS A HX OF OPIOID AND SEDATIVE DEPENDENCE, HTN. DYSLIPIDEMIA,GERD AND ULCERATIVE COLITIS. PT REPORTS NAUSEA/VOMITING TWICE TODAY. PT HAS BEEN C/O SEVERE ONGOING WATERY STOOL SINCE "I GOT HERE AND AT HOME BEFORE I GOT HERE". PT ADMITTED TO DETOX ON 05/22/18. PT STATES DIARRHEA IS SOMETIMES EVERY 5 - 15 MINS OF WATERY STOOL. PT ALSO C/O DIZZINESS, HEARTBURN, FEELING OF DRY MOUTH, WEAKNESS,FATIGUE AND ON/ OFF CONFUSION. Vital Signs 06/02/18 06/02/18 06:59 10:00 Temperature 98.9 F Pulse Rate 102 H 91 H Respiratory 18 Rate Blood Pressure 124/74 93/66 Laboratory Tests 05/23/18 05/23/18 05/23/18 07:44 07:44 07:44 WBC 7.0 RBC 4.32 Hgb 14.5 Hct 41.1 MCV 95.1 MCH 33.6 MCHC 35.3 RDW 13.8 Plt Count 264 MPV 7.0 L Sodium 138 Potassium 4.4 Chloride 101 Carbon Dioxide 29 Anion Gap 8 BUN 20 H Creatinine 1.6 H Creat Clearance w eGFR 42.70 Random Glucose 89 Calcium 9.2 Total Bilirubin 1.1 H AST 25 ALT 24 Alkaline Phosphatase 83 Ammonia Total Protein 7.5 Albumin 4.3 RPR Titer Nonreactive 05/24/18 06/02/18 06/02/18 07:40 07:00 07:00 WBC RBC Hgb Hct MCV MCH MCHC RDW Plt Count MPV Sodium 137 136 Potassium 4.6 4.2 Chloride 100 102 Carbon Dioxide 28 21 Anion Gap 9 13 BUN 24 H 53 H Creatinine 1.4 H 4.0 H Creat Clearance w eGFR 49.82 14.83 Random Glucose 90 104 Calcium 9.1 9.3 Total Bilirubin 0.7 1.2 H AST 22 31 ALT 23 26 Alkaline Phosphatase 92 66 Ammonia 23.10 Total Protein 7.2 7.2 Albumin 4.1 3.8 RPR Titer INCREASING ELEVATION OF BUN/CREATININE AND TOTAL BILIRUBIN. AMMONIA LEVEL IS WNL IMPRESSION;ULCERATIVE COLITIS FLARE UP RENAL INSUFFICIENCY-ABNORMAL RENAL FUNCTION TEST R/O OTHER PATHOLOGY PLAN;FOLLOW UP AT [facility] VIA AMBULANCE FOR MEDICAL EVALUATION AND POSSIBLE TREATMENT. PT MAY RETURN TO COMPLETE REHAB AFTER TREATMENT. ADDENDUM:PT IS CURRENTLY ON SUBOXONE BUT STATES HE IS CONSIDERING METHADONE MAINTENANCE AFTER DISCHARGE.
[2018-06-02 13:13] VITALS: BP 98/69; PULSE 96; TEMP 97.8
[2018-06-02] MEDS ORDERED: BISMUTH SUBSALICYLATE 262 MG/15 ML BTL PO SCH (13:45)
[2018-06-02] MEDS ORDERED: QUINAPRIL HCL 5 MG TABLET (FP) PO SCH (15:50)
== END 2018-06-02 23:55 | disposition short-term general hospital (02) | DRG 895 ==
LOC: YASAS 11:08 → Y6N 15:11 → Y5N 05-27 13:11
PROVIDERS: ATTEND Psychiatry & Neurology Psychiatry
PROC: HZ42ZZZ Group Counseling for Substance Abuse Treatment, Cognitive-Behavioral (ICD-10-PCS; principal; 2018-05-22)
PROC: HZ2ZZZZ Detoxification Services for Substance Abuse Treatment (ICD-10-PCS; 2018-05-27)
DX: F11.23 Opioid dependence with withdrawal (principal); F19.282 Other psychoactive substance dependence with psychoactive substance-induced sleep disorder; F33.9 Major depressive disorder, recurrent, unspecified; K51.90 Ulcerative colitis, unspecified, without complications; F13.230 Sedative, hypnotic or anxiolytic dependence with withdrawal, uncomplicated; F41.9 Anxiety disorder, unspecified; F19.24 Other psychoactive substance dependence with psychoactive substance-induced mood disorder; I10 Essential (primary) hypertension; E78.5 Hyperlipidemia, unspecified; K21.9 Gastro-esophageal reflux disease without esophagitis; N28.9 Disorder of kidney and ureter, unspecified; R19.7 Diarrhea, unspecified; F43.29 Adjustment disorder with other symptoms; Z87.891 Personal history of nicotine dependence
CPT/HCPCS: 36415; 80053; 82140; 85027; 86593; 90688; 93005; 93010; G0008

== ENCOUNTER 2018-06-02 14:07 | Inpatient (IN) | payer OTHER ==
--- NOTE | 2018-06-02 15:18 | PDOC ---
History of Present Illness - General Chief Complaint: Diarrhea Stated Complaint: Revisit, Lab Variance History Source: Patient Exam Limitations: No Limitations - History of Present Illness Initial Comments: 06/02/18 16:43 This is a 73 year old male with a history of substance abuse, alcohol abuse hx, ulcerative colitis (on mesalamine), sent from [facility] due to a 2 week history of diarrhea, also found to have a creatinine of 4. Creatinine on 05/24 was 1.4. Denies fever, chills, n, v, abdominal pain, sick contacts, sore throat, cough, chest pain, sob, leg swelling. Patient denies alcohol use, smoking. In detox for percocet. Last colonoscopy was wnl, and less that 6 yrs ago. Denies change/ new medication. Denies nsaid use. PMH: ulcerative colitis, hypertension, hyperlipidemia PSHx: none Social: alcohol (quit 30yrs ago) and substance abuse (heroin) quit 30yrs ago and restarted this summer with percocet 06/02/18 17:03 Past History - Past Medical History Allergies/Adverse Reactions: Allergies Allergy/AdvReac Type Severity Reaction Status Date / Time Penicillins Allergy Verified 05/22/18 13:10 Home Medications: Ambulatory Orders Acyclovir [Zovirax -] 400 mg PO BID 05/22/18 Misael/D3/Mag11/Zinc/Pl[employer]othes [employer] Officer/Tristen/Bor [Caltrate 600+D Plus Tablet] 600 mg PO DAILY 10/04 Cholecalciferol (Vitamin D3) [Vitamin D3 -] 400 unit PO DAILY 05/22/18 Hydrocodone/Acetaminophen [Hydrocodone-Acetamin 7.5-325] 1 each PO TID 05/22/18 Mesalamine [Lialda] 1.2 gm PO QID 05/22/18 Pantoprazole Sodium [Protonix -] 40 mg PO DAILY 05/22/18 Vitamin D3/Folic Acid [Roxifol-D Tablet] 500 unit PO DAILY 05/22/18 Amlodipine Besylate 5 mg PO DAILY #14 tablet 05/26/18 Atorvastatin Calcium [Lipitor] 10 mg PO HS #14 tablet 05/26/18 Quinapril HCl [Accupril -] 40 mg PO DAILY #14 tablet 05/26/18 Asthma: No Cancer: No Cardiac Disorders: No CVA: No COPD: No CHF: No Dementia: No Diabetes: No GI Disorders: Yes (ulcerative colitis, GERD) Disorders: No HTN: Yes (BP:140/89) Hypercholesterolemia: Yes (on meds) Kidney Stones: No Liver Disease: No Seizures: No Thyroid Disease: No - Surgical History Abdominal Surgery: No Appendectomy: No Cardiac Surgery: No Cholecystectomy: No Lung Surgery: No Neurologic Surgery: No Orthopedic Surgery: Yes (SPINAL FUSION OF L4+L5 ON 10/2003, RIGHT ELBOW FX AT 21 yrs) - Reproductive History Testicular Surgery: No - Suicide/Smoking/Psychosocial Hx Smoking History: Current every day smoker Have you smoked in the past 12 months: No If you are a former smoker, when did you quit?: 1985 Cigars Per Day: 0 Information on smoking cessation initiated: No Hx Alcohol Use: Yes Drug/Substance Use Hx: Yes Substance Use Type: Opiates Hx Substance Use Treatment: No (This is patient's first rehab.) Review of Systems - Review of Systems Able to Perform ROS?: Yes Is the patient limited Swiss proficient: No Constitutional: No: Chills, Diaphoresis, Fever, Loss of Appetite, Weakness Respiratory: No: Cough, Orthopnea, Shortness of Breath, Wheezing, Productive cough Cardiac (ROS): No: Chest Pain, Edema, Irregular Heart Rate ABD/GI: Yes: Diarrhea (watery, non bloody), Abdominal cramping. No: Abdominal Distended, Abd. Pain w/ defecation, Blood Streaked Bowels, Constipated, Difficulty Swallowing, Nausea, Poor Appetite, Poor Fluid Intake, Vomiting : No: Dysuria, Discharge Musculoskeletal: No: Back Pain, Muscle Weakness Integumentary: No: Change in Color, Change in Hair/Nails, Erythema, Pruritus, Rash, Sweating Neurological: No: Headache, Numbness, Weakness, Unsteady Gait Endocrine: No: Excessive Sweating Hematologic/Lymphatic: No: Anemia *Physical Exam - Vital Signs Last Vital Signs Temp Pulse Resp BP Pulse Ox 98.7 F 87 18 103/71 99 06/02/18 14:25 06/02/18 14:25 06/02/18 14:25 06/02/18 14:25 06/02/18 14:25 - Physical Exam General Appearance: Yes: Appropriately Dressed HEENT: positive: EOMI, FREDI Respiratory/Chest: positive: Lungs Clear, Normal Breath Sounds. negative: Chest Tender, Accessory Muscle Use, Crackles, Rhonchi, Wheezing Cardiovascular: positive: Regular Rhythm, Regular Rate, S1, S2 Gastrointestinal/Abdominal: positive: Normal Bowel Sounds, Flat, Soft. negative : Tender Musculoskeletal: positive: Normal Inspection Extremity: positive: Normal Range of Motion Integumentary: positive: Normal Color Neurologic: positive: Fully Oriented, Normal Mood/Affect ED Treatment Course - LABORATORY CBC & Chemistry Diagram: 06/02/18 15:17 06/02/18 15:17 Medical Decision Making - Medical Decision Making 06/02/18 16:51 This is a 73 year old male with a history of substance and hx of alcohol abuse, and ulcerative colitis, who presents with diarrhea x2 weeks and creatinine of 4.1. R/o acute colits flare, c, diff, vs pancreatitis, viral/bacterial gastroenteritis, vs opiod withdrawal vs other acute abdominal pathology. #acute kidney injury: -ua, urine creatinine, urine protein; ratio, urine electrolytes -renal/bladder US pending -renal consulted #Diarrhea: -cbc, cmp, lipase, mg -IVF -c diff -abdominal non contrast CT 06/02/18 18:10 -CT abdomen with gastric fluid consistent with diarrhea; no acute abdominal pathology -#### although from my read; there are some pill like object in stomach and small intestine; will get Tylenol; salicylic; iron level -case discussed with Dr. Parham who accepts patient *DC/Admit/Observation/Transfer Diagnosis at time of Disposition: Acute kidney failure - Discharge Dispostion Decision to Admit order: Yes - Referrals Referrals: Charles Amos MD [Primary Care Provider] - - Patient Instructions - Post Discharge Activity
[2018-06-02 15:24] LABS: BASO % 0.5 % (0-2.0); EOS % 1.1 % (0-4.5); HEMATOCRIT 39.3 % (35.4-49); HEMOGLOBIN 13.4 GM/dL (11.7-16.9); MCH 32.7 pg (25.7-33.7); MCHC 34.2 g/dl (32.0-35.9); MEAN CELL VOLUME 95.8 fl (80-96); MONO % 12.2 % (3.8-10.2); NEUT % 73.2 % (42.8-82.8); PLATELET COUNT 230 K/MM3 (134-434); RBC 4.11 M/mm3 (4.00-5.60); RDW 14.1 % (11.9-15.9); WHITE BLOOD COUNT 5.9 K/mm3 (4.0-10.0)
[2018-06-02 15:41] LABS: ALBUMIN 3.6 g/dl (3.4-5.0); ALK PHOS 62 U/L (45-117); ANION GAP 10 MMOL/L (8-16); BLOOD UREA NITROGEN 60 mg/dL (7-18); CALCIUM 9.3 mg/dL (8.5-10.1); CHLORIDE 98 mmol/L (98-107); CO2 23 mmol/L (21-32); CREATININE 4.1 mg/dL (0.55-1.3); GLUCOSE,RANDOM 115 mg/dL (74-106); LIPASE 102 U/L (73-393); MAGNESIUM 2.2 mg/dL (1.8-2.4); POTASSIUM 4.1 mmol/L (3.5-5.1); SGOT/AST 36 U/L (15-37); SGPT/ALT 27 U/L (13-61); SODIUM 131 mmol/L (136-145); TOT PROT 6.9 g/dl (6.4-8.2)
[2018-06-02 16:07] LABS: COCAINE, UR NEGATIVE ng/ml (CUTOFF=300); OPIATES, URI NEGATIVE ng/ml (CUTOFF=300); PHENCYCLIDINE,URINE NEGATIVE ng/ml (CUTOFF=25); URINE AMPHETAMINES NEGATIVE ng/ml (CUTOFF=500); URINE BARBITURATES NEGATIVE ng/ml (CUTOFF=200)
[2018-06-02 16:10] LABS: METHADONE, UR POSITIVE ng/ml (CUTOFF=300); URINE BENZODIAZEPINES POSITIVE ng/ml (CUTOFF=200)
[2018-06-02] MEDS ORDERED: ACETAMINOPHEN 1000 MG/100 ML VIAL (NON FORMULARY) IVPB ONE (16:20)
[2018-06-02] MEDS ORDERED: SODIUM CHLORIDE 1,000 ML IV STA (16:20)
--- NOTE | 2018-06-02 16:22 | PDOC ---
Attending Attestation - Resident Resident Name: Vidhi Barba - ED Attending Attestation I have performed the following: I have examined & evaluated the patient, The case was reviewed & discussed with the resident, I agree w/resident's findings & plan, Exceptions are as noted - HPI HPI: 06/02/18 16:18 73 M with h/o HTN, HLD, UC, GERD, depression, admitted to [facility] for opiate detox, presenting to ED for abnormal labs and diarrhea. Pt reports that since he was admitted to [facility] last week, he has been having persistent diarrhea. He reports multiple watery stools per day. No BRBPR, no dark stools. No N/V. Endorses abdominal cramps. Denies F/C. Denies CP/SOB. Pt had routine labs done at [facility] today that showed an increase in his creatinine to 4.0. - Physicial Exam PE: 06/02/18 16:20 "GENERAL: Awake, alert, and fully oriented, in no acute distress. HEAD: No signs of trauma EYES: PERRLA, EOMI, sclera anicteric, conjunctiva clear ENT: Auricles normal inspection, hearing grossly normal, nares patent, oropharynx clear without exudates. Moist mucosa NECK: Nontender, no stepoffs, Normal ROM, supple, no lymphadenopathy, JVD, or masses LUNGS: Breath sounds equal, clear to auscultation bilaterally. No wheezes, and no crackles HEART: Regular rate and rhythm, normal S1 and S2, no murmurs, rubs or gallops ABDOMEN: + hyperactive bowel sounds. + epigastric TTP, No guarding, no rebound. No masses EXTREMITIES: Normal range of motion, no edema. No clubbing or cyanosis. No cords, erythema, or tenderness NEUROLOGICAL: Cranial nerves II through XII intact. 5/5 strength and sensation in all extremities, Normal speech, normal gait, normal cerebellar function SKIN: Warm, Dry, normal turgor, no rashes or lesions noted. - Medical Decision Making 06/02/18 16:20 73 M with diarrhea x 1 week, likely 2/2 opiate withdrawal as pt is currently detoxing. Also consider UC flare, though pt with relatively benign abdomen. Labs at [facility] showed AMIE with Cr 4.0. Possibly 2/2 volume depletion. - Labs, urine lytes - CTAP non-con - IVF, tylenol - Admit - Renal c/s 06/02/18 17:31 Labs with Cr 4.1, otherwise unremarkable CT reveals multiple radio-opaque objects in stomach. Suspicious for ?pills. Pt denies ingesting any tablets while in ED or prior to arrival. Unclear if this was an intentional ingestion of pills. Possible stuffing. Pt adamantly denies attempting to hurt himself. Denies any thoughts of suicide, denies HI/AVH. Pt not exhibiting any signs or symptoms of acute intoxication at this time. Tylenol and salicylate levels sent. Will check Iron level as well. Pt's Utox positive for benzos and methadone. Pt admitted to Dr. Parham
[2018-06-02] MEDS ORDERED: ACETAMINOPHEN INJECTION 100 ML IVPB ONE (16:24)
[2018-06-02] MEDS ORDERED: SODIUM CHLORIDE 1,000 ML IV SCH (16:45)
[2018-06-02 16:47] LABS: URINE APPEARANCE CLOUDY; URINE BILIRUBIN NEGATIVE (<2.0 mg/dL); URINE COLOR AMBER; URINE GLUCOSE (UA) NEGATIVE (NEGATIVE); URINE KETONE NEGATIVE (NEGATIVE); URINE LEUK ESTERASE NEGATIVE (NEGATIVE); URINE NITRITE NEGATIVE (NEGATIVE); URINE PROTEIN 1+ (NEGATIVE); URINE UROBILINOGEN NEGATIVE mg/dL (0.2-1.0)
[2018-06-02 16:51] LABS: RATIO URIN PROTEIN/URIN CREAT 0.24 MG/DL
[2018-06-02 17:02] LABS: EPI CELLS RARE /HPF (FEW); GRANULAR CASTS 3 /lpf; URINE MUCUS RARE
--- NOTE | 2018-06-02 20:06 | HP ---
Admitting History and Physical - Primary Care Physician PCP: Abhishek Parham - Admission History of Present Illness: 73 year old male with a history of substance abuse, alcohol abuse hx, ulcerative colitis (on mesalamine), sent from [facility] due to a 2 week history of diarrhea, also found to have a creatinine of 4. Creatinine on 05/24 was 1.4. Denies fever, chills, n, v, abdominal pain, sick contacts, sore throat, cough, chest pain, sob, leg swelling. Patient denies alcohol use, smoking. In detox for percocet. Last colonoscopy was wnl, and less that 6 yrs ago. Denies change/ new medication. PMH: ulcerative colitis, hypertension, hyperlipidemia - Past Medical History Gastrointestinal: Yes: Ulcerative Colitis - Smoking History Smoking history: Current every day smoker Have you smoked in the past 12 months: No If you are a former smoker, when did you quit?: 1984 - Alcohol/Substance Use Hx Alcohol Use: Yes Home Medications - Allergies Allergies/Adverse Reactions: Allergies Allergy/AdvReac Type Severity Reaction Status Date / Time Penicillins Allergy Verified 05/22/18 13:10 - Home Medications Home Medications: Ambulatory Orders Acyclovir [Zovirax -] 400 mg PO BID 05/22/18 Misael/D3/Mag11/Zinc/Job Developer For [employer]ults/Tristen/Bor [Caltrate 600+D Plus Tablet] 600 mg PO DAILY 10/04 Cholecalciferol (Vitamin D3) [Vitamin D3 -] 400 unit PO DAILY 05/22/18 Hydrocodone/Acetaminophen [Hydrocodone-Acetamin 7.5-325] 1 each PO TID 05/22/18 Mesalamine [Lialda] 1.2 gm PO QID 05/22/18 Pantoprazole Sodium [Protonix -] 40 mg PO DAILY 05/22/18 Vitamin D3/Folic Acid [Roxifol-D Tablet] 500 unit PO DAILY 05/22/18 Amlodipine Besylate 5 mg PO DAILY #14 tablet 05/26/18 Atorvastatin Calcium [Lipitor] 10 mg PO HS #14 tablet 05/26/18 Quinapril HCl [Accupril -] 40 mg PO DAILY #14 tablet 05/26/18 Family Disease History - Family Disease History Family Disease History: Heart Disease: Mother (, etoh), Other: Father ( , renal disease), Mother, Sister (one - living ), Daughter (16 yr daughter committed suicide; also has healthy 19 yr old) Review of Systems - Review of Systems Gastrointestinal: reports: Diarrhea Physical Examination Vital Signs: Vital Signs Temperature 98.7 F 06/02/18 14:25 Pulse Rate 87 06/02/18 14:25 Respiratory Rate 18 06/02/18 14:25 Blood Pressure 103/71 06/02/18 14:25 O2 Sat by Pulse Oximetry (%) 99 06/02/18 14:25 Constitutional: Yes: No Distress HENT: Yes: Atraumatic Neck: Yes: Supple Cardiovascular: Yes: Regular Rate and Rhythm Respiratory: Yes: CTA Bilaterally Gastrointestinal: Yes: Normal Bowel Sounds Extremities: Yes: WNL Edema: No Peripheral Pulses WNL: Yes Neurological: Yes: Alert, Oriented Labs: CBC, BMP 06/02/18 15:17 06/02/18 15:17 Imaging - Results Cat Scan: Report Reviewed Ultrasound: Report Reviewed Problem List - Problems (1) Acute kidney failure Assessment/Plan: ivf fluid nephro consult monitor labs Code(s): N17.9 - ACUTE KIDNEY FAILURE, UNSPECIFIED (2) Opioid dependence Assessment/Plan: from [facility] Code(s): F11.20 - OPIOID DEPENDENCE, UNCOMPLICATED (3) Colitis Assessment/Plan: has diarrhea continue home meds id consult Code(s): K52.9 - NONINFECTIVE GASTROENTERITIS AND COLITIS, UNSPECIFIED (4) Dyslipidemia Code(s): E78.5 - HYPERLIPIDEMIA, UNSPECIFIED (5) GERD (gastroesophageal reflux disease) Code(s): K21.9 - GASTRO-ESOPHAGEAL REFLUX DISEASE WITHOUT ESOPHAGITIS Qualifiers: (6) HTN (hypertension) Assessment/Plan: on meds stable Code(s): I10 - ESSENTIAL (PRIMARY) HYPERTENSION Qualifiers: (7) MDD (major depressive disorder) Code(s): F32.9 - MAJOR DEPRESSIVE DISORDER, SINGLE EPISODE, UNSPECIFIED Assessment/Plan Laboratory Tests 06/02/18 06/02/18 06/02/18 15:17 15:17 15:20 WBC 5.9 RBC 4.11 Hgb 13.4 Hct 39.3 MCV 95.8 MCH 32.7 MCHC 34.2 RDW 14.1 Plt Count 230 MPV 7.0 L Absolute Neuts (auto) 4.3 Neutrophils % 73.2 Lymphocytes % 13.0 Monocytes % 12.2 H Eosinophils % 1.1 Basophils % 0.5 Nucleated RBC % 0 Sodium 131 L Potassium 4.1 Chloride 98 Carbon Dioxide 23 Anion Gap 10 BUN 60 H Creatinine 4.1 H Creat Clearance w eGFR 14.42 Random Glucose 115 H Calcium 9.3 Magnesium 2.2 Total Bilirubin 1.0 AST 36 ALT 27 Alkaline Phosphatase 62 Total Protein 6.9 Albumin 3.6 Lipase 102 Urine Color Urine Appearance Urine pH Ur Specific [place] Urine Protein Urine Glucose (UA) Urine Ketones Urine Blood Urine Nitrite Urine Bilirubin Urine Urobilinogen Ur Leukocyte Esterase Urine WBC (Auto) Urine RBC (Auto) Ur Epithelial Cells Granular Casts Urine Mucus U Random Total Protein Ur Random Sodium Ur Random Potassium Ur Random Chloride Urine Creatinine Protein/Creatinin Ratio Salicylates < 1.7 L Opiates Screen Methadone Screen Acetaminophen < 2.0 L Barbiturate Screen Phencyclidine Screen Ur Amphetamines Screen MDMA (Ecstasy) Screen Benzodiazepines Screen Cocaine Screen U Marijuana (THC) Screen HIV 1&2 Antibody Screen Negative HIV P24 Antigen Negative 06/02/18 06/02/18 06/02/18 15:40 15:40 15:40 WBC RBC Hgb Hct MCV MCH MCHC RDW Plt Count MPV Absolute Neuts (auto) Neutrophils % Lymphocytes % Monocytes % Eosinophils % Basophils % Nucleated RBC % Sodium Potassium Chloride Carbon Dioxide Anion Gap BUN Creatinine Creat Clearance w eGFR Random Glucose Calcium Magnesium Total Bilirubin AST ALT Alkaline Phosphatase Total Protein Albumin Lipase Urine Color [place] Urine Appearance Cloudy Urine pH 5.0 Ur Specific [place] 1.015 Urine Protein 1+ H Urine Glucose (UA) Negative Urine Ketones Negative Urine Blood 1+ H Urine Nitrite Negative Urine Bilirubin Negative Urine Urobilinogen Negative Ur Leukocyte Esterase Negative Urine WBC (Auto) 5 Urine RBC (Auto) 2 Ur Epithelial Cells Rare Granular Casts 3 Urine Mucus Rare U Random Total Protein 69 H Ur Random Sodium 26 L Ur Random Potassium 24.0 L Ur Random Chloride 21 L Urine Creatinine 284.0 H 294.0 H Protein/Creatinin Ratio 0.24 Salicylates Opiates Screen Methadone Screen Acetaminophen Barbiturate Screen Phencyclidine Screen Ur Amphetamines Screen MDMA (Ecstasy) Screen Benzodiazepines Screen Cocaine Screen U Marijuana (THC) Screen HIV 1&2 Antibody Screen HIV P24 Antigen 06/02/18 15:40 WBC RBC Hgb Hct MCV MCH MCHC RDW Plt Count MPV Absolute Neuts (auto) Neutrophils % Lymphocytes % Monocytes % Eosinophils % Basophils % Nucleated RBC % Sodium Potassium Chloride Carbon Dioxide Anion Gap BUN Creatinine Creat Clearance w eGFR Random Glucose Calcium Magnesium Total Bilirubin AST ALT Alkaline Phosphatase Total Protein Albumin Lipase Urine Color Urine Appearance Urine pH Ur Specific [place] Urine Protein Urine Glucose (UA) Urine Ketones Urine Blood Urine Nitrite Urine Bilirubin Urine Urobilinogen Ur Leukocyte Esterase Urine WBC (Auto) Urine RBC (Auto) Ur Epithelial Cells Granular Casts Urine Mucus U Random Total Protein Ur Random Sodium Ur Random Potassium Ur Random Chloride Urine Creatinine Protein/Creatinin Ratio Salicylates Opiates Screen Negative Methadone Screen Positive A* Acetaminophen Barbiturate Screen Negative Phencyclidine Screen Negative Ur Amphetamines Screen Negative MDMA (Ecstasy) Screen Negative Benzodiazepines Screen Positive A* Cocaine Screen Negative U Marijuana (THC) Screen Negative HIV 1&2 Antibody Screen HIV P24 Antigen Active Medications Generic Name Dose Route Start Last Admin Trade Name Freq PRN Reason Stop Dose Admin Sodium Chloride 1,000 mls @ 150 mls/hr 06/02/18 16:45 Normal Saline - IV ASDIR BYRON Active Medications Generic Name Dose Route Start Last Admin Trade Name Freq PRN Reason Stop Dose Admin Acetaminophen 650 mg 06/04/18 18:54 06/05/18 02:18 Tylenol - PO 650 mg Q6H PRN Administration FEVER Al Hydroxide/Mg Hydroxide 30 ml 06/05/18 21:39 06/06/18 12:02 Mylanta Oral Suspension - PO 30 ml Q6H PRN Administration INDIGESTION Amlodipine Besylate 5 mg 06/03/18 10:00 06/06/18 09:43 Norvasc - PO 5 mg DAILY BYRON Administration Heparin Sodium (Porcine) 5,000 unit 06/02/18 22:00 06/06/18 09:46 Heparin - SQ 5,000 unit BID BYRON Administration Sodium Chloride 1,000 mls @ 100 mls/hr 06/02/18 20:30 06/05/18 22:04 Normal Saline - IV Not Given ASDIR BYRON Non-Formulary Medication 0 gm 06/05/18 10:00 06/06/18 09:43 Mesalamine [Lialda] PO 1.2 gm DAILY BYRON Administration Oxycodone HCl 5 mg 06/05/18 12:02 06/05/18 22:03 Roxicodone - PO 5 mg Q6H PRN Administration PAIN Pantoprazole Sodium 40 mg 06/06/18 11:15 11/18/18 12:02 Protonix - PO 40 mg DAILY BYRON Administration Zolpidem Tartrate 5 mg 06/04/18 18:53 06/05/18 22:04 Ambien - PO 5 mg HS PRN Administration INSOMNIA
[2018-06-02] MEDS: SODIUM CHLORIDE 1,000 ML IV SCH (21:00)
[2018-06-02] MEDS ORDERED: PANTOPRAZOLE SODIUM 40 MG VIAL ONE ×2 (21:18→22:10)
[2018-06-02] MEDS: PANTOPRAZOLE SODIUM 40 MG VIAL IVPUSH SCH (21:20)
[2018-06-02] MEDS ORDERED: PATIENT'S OWN MEDICATION (NON-FORMULARY) (Mesalamine [Lialda] 1.2 GM) PO SCH (22:00)
[2018-06-02] MEDS ORDERED: HEPARIN NA (PORCINE) 5,000 UNITS/ML 1ML VIAL ONE (22:02)
[2018-06-02] MEDS: HEPARIN NA (PORCINE) 5,000 UNITS/ML 1ML VIAL SQ SCH (22:16)
[2018-06-03 00:33] VITALS: BMI 28.8
[2018-06-03 07:59] LABS: BASO % 0.5 % (0-2.0); EOS % 1.4 % (0-4.5); HEMATOCRIT 34.4 % (35.4-49); HEMOGLOBIN 11.5 GM/dL (11.7-16.9); LYMPH % 27.4 % (8-40); MCH 32.1 pg (25.7-33.7); MCHC 33.4 g/dl (32.0-35.9); MEAN CELL VOLUME 96.1 fl (80-96); MONO % 14.4 % (3.8-10.2); NEUT % 56.3 % (42.8-82.8); PLATELET COUNT 195 K/MM3 (134-434); RBC 3.58 M/mm3 (4.00-5.60); WHITE BLOOD COUNT 3.6 K/mm3 (4.0-10.0)
[2018-06-03 08:36] LABS: ALK PHOS 49 U/L (45-117); ANION GAP 7 MMOL/L (8-16); BILIRUBIN,TOTAL 0.8 mg/dL (0.2-1); BLOOD UREA NITROGEN 52 mg/dL (7-18); CALCIUM 8.2 mg/dL (8.5-10.1); CHLORIDE 109 mmol/L (98-107); CO2 22 mmol/L (21-32); CREATININE 2.5 mg/dL (0.55-1.3); GLUCOSE,RANDOM 82 mg/dL (74-106); POTASSIUM 4.5 mmol/L (3.5-5.1); SGOT/AST 25 U/L (15-37); SGPT/ALT 23 U/L (13-61); SODIUM 138 mmol/L (136-145); TOT PROT 5.7 g/dl (6.4-8.2)
[2018-06-03] MEDS: HEPARIN NA (PORCINE) 5,000 UNITS/ML 1ML VIAL SQ SCH ×2 (09:04→23:28)
[2018-06-03] MEDS: amLODIPine BESYLATE 5 MG TABLET (FP) PO SCH (09:09)
[2018-06-03] MEDS: PANTOPRAZOLE SODIUM 40 MG VIAL IVPUSH SCH (09:10)
--- NOTE | 2018-06-03 11:50 | EKG ---
Test Reason : Blood Pressure : / mmHG Vent. Rate : 081 BPM Atrial Rate : 081 BPM P-R Int : 176 ms QRS Dur : 072 ms QT Int : 358 ms P-R-T Axes : 023 -22 009 degrees QTc Int : 415 ms POOR DATA QUALITY, INTERPRETATION MAY BE ADVERSELY AFFECTED NORMAL SINUS RHYTHM INFERIOR INFARCT , AGE UNDETERMINED ABNORMAL ECG WHEN COMPARED WITH ECG OF 22-MAY-2018 18:39, ABERRANT CONDUCTION IS NO LONGER PRESENT INFERIOR INFARCT IS NOW PRESENT INVERTED T WAVES HAVE REPLACED NONSPECIFIC T WAVE ABNORMALITY IN INFERIOR LEADS Confirmed by JUANPABLO DAVIS, DINA ([id number]) on 06/03/2018 11:50:26 AM Referred By: Confirmed By:DINA GERONIMO MD
[2018-06-03] MEDS: SODIUM CHLORIDE 1,000 ML IV SCH (14:53)
--- NOTE | 2018-06-03 15:14 | PN ---
Progress Note, Physician History of Present Illness: still has diarrhea - Current Medication List Current Medications: Active Medications Amlodipine Besylate (Norvasc -) 5 mg PO DAILY [facility] Last Admin: 06/03/18 09:09 Dose: 5 mg Heparin Sodium (Porcine) (Heparin -) 5,000 unit SQ BID [facility] Last Admin: 06/03/18 09:04 Dose: Not Given Sodium Chloride (Normal Saline -) 1,000 mls @ 100 mls/hr IV ASDIR [facility] Last Admin: 06/03/18 14:53 Dose: 100 mls/hr Non-Formulary Medication (Mesalamine [Lialda]) 1.2 gm PO QID [facility] Pantoprazole Sodium (Protonix Iv) 40 mg IVPUSH DAILY [facility] Last Admin: 06/03/18 09:10 Dose: 40 mg - Objective Vital Signs: Vital Signs Temperature 98.0 F 06/03/18 14:00 Pulse Rate 77 06/03/18 09:00 Respiratory Rate 20 06/03/18 09:00 Blood Pressure 120/89 06/03/18 09:00 O2 Sat by Pulse Oximetry (%) 95 06/03/18 00:36 Constitutional: Yes: No Distress HENT: Yes: Atraumatic Neck: Yes: Supple Cardiovascular: Yes: Regular Rate and Rhythm Respiratory: Yes: CTA Bilaterally Gastrointestinal: Yes: Normal Bowel Sounds Extremities: Yes: WNL Neurological: Yes: Alert, Oriented Labs: CBC, BMP 06/03/18 07:10 06/03/18 07:10 Problem List - Problems (1) Acute kidney failure Assessment/Plan: pre renal on ivf cr improved Code(s): N17.9 - ACUTE KIDNEY FAILURE, UNSPECIFIED (2) Opioid dependence Assessment/Plan: from [facility] Code(s): F11.20 - OPIOID DEPENDENCE, UNCOMPLICATED (3) Colitis Assessment/Plan: still has diarrhea npo, ivf gi to see patient Code(s): K52.9 - NONINFECTIVE GASTROENTERITIS AND COLITIS, UNSPECIFIED (4) Dyslipidemia Code(s): E78.5 - HYPERLIPIDEMIA, UNSPECIFIED (5) GERD (gastroesophageal reflux disease) Code(s): K21.9 - GASTRO-ESOPHAGEAL REFLUX DISEASE WITHOUT ESOPHAGITIS Qualifiers: (6) HTN (hypertension) Code(s): I10 - ESSENTIAL (PRIMARY) HYPERTENSION Qualifiers: (7) MDD (major depressive disorder) Code(s): F32.9 - MAJOR DEPRESSIVE DISORDER, SINGLE EPISODE, UNSPECIFIED
--- NOTE | 2018-06-03 15:51 | CONSULT ---
Consult Consult Specialty:: Nephrology Reason for Consultation:: AMIE - History of Present Illness Chief Complaint: sent from [facility] for diarrhea History of Present Illness: Pt is a 73 year old male with pmhx of substance abuse, etoh abuse, ulcerative colitis on mesalamine and CKD who presents to the ER from [facility] for elevated creatinine and diarrhea. He denies history of CKD but says that his father from kidney failure. He denies dysuria or hematuria. He denies nsaid use. He does complain of diarrhea. He did respond to fluids. - History Source History Provided By: Patient, Medical Record - Past Medical History Cardio/Vascular: Yes: HTN Gastrointestinal: Yes: Ulcerative Colitis Renal/: Yes: Renal Inusuff - Alcohol/Substance Use Hx Alcohol Use: No - Smoking History Smoking history: Former smoker Have you smoked in the past 12 months: No If you are a former smoker, when did you quit?: 1985 Home Medications - Allergies Allergies/Adverse Reactions: Allergies Allergy/AdvReac Type Severity Reaction Status Date / Time Penicillins Allergy Verified 05/22/18 13:10 - Home Medications Home Medications: Ambulatory Orders Acyclovir [Zovirax -] 400 mg PO BID 05/22/18 Misael/D3/Mag11/Zinc/Supervisor Building Maintenance/Tristen/Bor [Caltrate 600+D Plus Tablet] 600 mg PO DAILY 10/04 Cholecalciferol (Vitamin D3) [Vitamin D3 -] 400 unit PO DAILY 05/22/18 Hydrocodone/Acetaminophen [Hydrocodone-Acetamin 7.5-325] 1 each PO TID 05/22/18 Mesalamine [Lialda] 1.2 gm PO QID 05/22/18 Pantoprazole Sodium [Protonix -] 40 mg PO DAILY 05/22/18 Vitamin D3/Folic Acid [Roxifol-D Tablet] 500 unit PO DAILY 05/22/18 Amlodipine Besylate 5 mg PO DAILY #14 tablet 05/26/18 Atorvastatin Calcium [Lipitor] 10 mg PO HS #14 tablet 05/26/18 Quinapril HCl [Accupril -] 40 mg PO DAILY #14 tablet 05/26/18 Family Disease History - Family Disease History Family Disease History: Heart Disease: Mother (, etoh), Other: Father ( , renal disease), Mother, Sister (one - living ), Daughter (16 yr daughter committed suicide; also has healthy 19 yr old) Review of Systems - Review of Systems Constitutional: reports: Malaise Eyes: reports: No Symptoms HENT: reports: No Symptoms Neck: reports: No Symptoms Cardiovascular: reports: No Symptoms Respiratory: reports: No Symptoms Gastrointestinal: reports: Diarrhea Genitourinary: reports: No Symptoms Musculoskeletal: reports: No Symptoms Integumentary: reports: No Symptoms Neurological: reports: No Symptoms Endocrine: reports: No Symptoms Hematology/Lymphatic: reports: No Symptoms Psychiatric: reports: No Symptoms Physical Exam Vital Signs: Vital Signs Temperature 98.0 F 06/03/18 14:00 Pulse Rate 77 06/03/18 09:00 Respiratory Rate 20 06/03/18 09:00 Blood Pressure 120/89 06/03/18 09:00 O2 Sat by Pulse Oximetry (%) 95 06/03/18 00:36 Constitutional: Yes: Calm Eyes: Yes: Conjunctiva Clear HENT: Yes: Atraumatic Neck: Yes: Supple Cardiovascular: Yes: S1, S2 Respiratory: Yes: CTA Bilaterally Gastrointestinal: Yes: Soft Renal/: Yes: WNL Musculoskeletal: Yes: WNL Edema: No Neurological: Yes: Oriented Psychiatric: Yes: Oriented Labs: CBC, BMP 06/03/18 07:10 06/03/18 07:10 Imaging - Results Ultrasound: Report Reviewed Problem List - Problems (1) Acute kidney failure Code(s): N17.9 - ACUTE KIDNEY FAILURE, UNSPECIFIED (2) Opioid dependence Code(s): F11.20 - OPIOID DEPENDENCE, UNCOMPLICATED (3) Colitis Code(s): K52.9 - NONINFECTIVE GASTROENTERITIS AND COLITIS, UNSPECIFIED Assessment/Plan Current Medications Generic Name Dose Route Start Last Admin Trade Name Abdiasq PRN Reason Stop Dose Admin Amlodipine Besylate 5 mg 06/03/18 10:00 06/03/18 09:09 Norvasc - PO 5 mg DAILY BYRON Administration Heparin Sodium (Porcine) 5,000 unit 06/02/18 22:00 06/03/18 09:04 Heparin - SQ Not Given BID BYRON Sodium Chloride 1,000 mls @ 100 mls/hr 06/02/18 20:30 06/03/18 14:53 Normal Saline - IV 100 mls/hr ASDIR BYRON Administration Non-Formulary Medication 1.2 gm 06/02/18 22:00 Mesalamine [Lialda] PO QID BYRON Pantoprazole Sodium 40 mg 06/02/18 20:30 06/03/18 09:10 Protonix Iv IVPUSH 40 mg DAILY BYRON Administration Impression 1. AMIE 2. nephrolithiasis 3. ulcerative colitis 4. opioid dependence 5. HTN Plan - renal function is improving with fluids - cont saline - urine sodium is low, likely pre-renal disease - repeat labs in am - he had abnormal yard pipe grader in the past - will need a renal workup after discharge - repeat ua once yard pipe grader stabilizes Dr Bucio
--- NOTE | 2018-06-03 18:42 | CON.GI ---
Consult Consult Specialty:: GI Referred by:: Hospitalist Service Reason for Consultation:: Ulcerative colitis - History of Present Illness Chief Complaint: diarrhea History of Present Illness: 73M admitted from [facility] (abuses prescription medication: percocet, oxycodone and xanax) for evaluation of diarrhea. He has a history of Ulcerative colitis. he states that his long standing trauma director is Dr. Pedrito Gould in [facility]. He last saw him over a year ago. his PMD is Dr. Charles Amos in [facility]. He is maintained on mesalamine and states that when he has had flares, has been given "enemas". Copious diarrhea has not been wittnessed by nursing staff. There has been no rectal bleeding. He denies weight loss. He has not had a colonoscopy in over a year. C. Diff was negative. He does not give a known history of renal insufficiency - History Source History Provided By: Patient - Past Medical History Cardio/Vascular: Yes: HTN Gastrointestinal: Yes: Ulcerative Colitis - Past Surgical History Additional Surgical History: L-spine surgery - Alcohol/Substance Use Hx Alcohol Use: Yes ([employer] member in past) History of Substance Use: reports: Prescription (Benzodiazapines, opiates) - Smoking History Smoking history: Former smoker Have you smoked in the past 12 months: No If you are a former smoker, when did you quit?: 1984 - Social History Usual Living Arrangement: With Spouse Place of : [facility] History of Recent Travel: No Home Medications - Allergies Allergies/Adverse Reactions: Allergies Allergy/AdvReac Type Severity Reaction Status Date / Time Penicillins Allergy Verified 05/22/18 13:10 - Home Medications Home Medications: Ambulatory Orders Acyclovir [Zovirax -] 400 mg PO BID 05/22/18 Misael/D3/Mag11/Zinc/Automobile Body Customizer/Tristen/Bor [Caltrate 600+D Plus Tablet] 600 mg PO DAILY 10/04 Cholecalciferol (Vitamin D3) [Vitamin D3 -] 400 unit PO DAILY 05/22/18 Hydrocodone/Acetaminophen [Hydrocodone-Acetamin 7.5-325] 1 each PO TID 05/22/18 Mesalamine [Lialda] 1.2 gm PO QID 05/22/18 Pantoprazole Sodium [Protonix -] 40 mg PO DAILY 05/22/18 Vitamin D3/Folic Acid [Roxifol-D Tablet] 500 unit PO DAILY 05/22/18 Amlodipine Besylate 5 mg PO DAILY #14 tablet 05/26/18 Atorvastatin Calcium [Lipitor] 10 mg PO HS #14 tablet 05/26/18 Quinapril HCl [Accupril -] 40 mg PO DAILY #14 tablet 05/26/18 Family Disease History - Family Disease History Family Disease History: Heart Disease: Mother (, etoh), Other: Father ( , renal disease), Mother, Sister (one - living ), Daughter (16 yr daughter committed suicide; also has healthy 19 yr old) Review of Systems - Review of Systems Constitutional: denies: Chills, Fever, Unintentional Wgt. Loss Gastrointestinal: reports: Diarrhea. denies: Abdominal Pain, Melena, Rectal Bleeding, Vomiting, Vomiting Blood Physical Exam-GI Vital Signs: Vital Signs Temperature 98.0 F 06/03/18 14:00 Pulse Rate 77 06/03/18 09:00 Respiratory Rate 20 06/03/18 09:00 Blood Pressure 120/89 06/03/18 09:00 O2 Sat by Pulse Oximetry (%) 95 06/03/18 00:36 Constitutional: Yes: Calm Eyes: No: Sclera Icterus Cardiovascular: Yes: Regular Rate and Rhythm Respiratory: Yes: CTA Bilaterally Gastrointestinal Inspection: No: Distention, Hernia, Scars ...Auscultate: Yes: Normoactive Bowel Sounds ...Palpate: Yes: Soft. No: Hepatomegaly, Splenomegaly, Tenderness ...Rectal Exam: Yes: Other (No external lesions, no masses, scant light brown stool, guaiac negative) Edema: No Neurological: Yes: Alert Labs: CBC, BMP 06/03/18 07:10 06/03/18 07:10 Imaging - Results Cat Scan: Report Reviewed Problem List - Problems (1) Colitis Assessment/Plan: Unclear if flare of UC or how extensive of diarrhea he is having: Advise: lactose free, low fiber diet Stool for culture, O&P CRP Stool calprotectin Stopped protonix. No need Lialda is generally dosed once daily, not QID. Advised patient: 4 1.2mg pills once daily max dose If persistent diarrhea through weekend, flex sig thursday AM labs Will need outpatient follow-up with his longstanding trauma director Dr. Major Field Code(s): K52.9 - NONINFECTIVE GASTROENTERITIS AND COLITIS, UNSPECIFIED
[2018-06-04] MEDS: SODIUM CHLORIDE 1,000 ML IV SCH (02:07)
[2018-06-04] MEDS: amLODIPine BESYLATE 5 MG TABLET (FP) PO SCH (10:29)
[2018-06-04] MEDS: HEPARIN NA (PORCINE) 5,000 UNITS/ML 1ML VIAL SQ SCH ×2 (10:29→21:37)
[2018-06-04 14:13] LABS: HBSAG SCREEN Negative (Negative); HEP B CORE AB, TOT Positive (Negative)
--- NOTE | 2018-06-04 14:30 | PN ---
GI Progress Note Subjective: States being tired Also states that he has been taking Lialda 3 pills three times a day Lialda was ordered by Dr. Parham however the patient has not been getting this as it is non-formulary. he also does not have his own home meds with him - Objective Vital Signs: Vital Signs Temperature 98.1 F 06/03/18 18:00 Pulse Rate 101 H 06/03/18 18:00 Respiratory Rate 20 06/03/18 18:00 Blood Pressure 129/91 06/03/18 18:00 O2 Sat by Pulse Oximetry (%) 95 06/03/18 00:36 Constitutional: Calm Eyes: No: Sclera Icterus Cardiovascular: Yes: Regular Rate and Rhythm Respiratory: Yes: CTA Bilaterally Gastrointestinal Inspection: No: Distention Edema: No (No LE edema) Labs: CBC, BMP 06/03/18 07:10 06/03/18 07:10 Problem List - Problems (1) Colitis Assessment/Plan: No copious diarrhea reported by nursing. await culture/O&P Advised patient that max dose dose of Lialda should be 4 1.2g pills once per day. He said that he would call his to bring them in and start taking them an that fashion. He stated that his OPMD ordered it as 4 pills TID. I advised that he discuss things with his sales agent insurance when his acute issues are resolved and that he should call to arrange follow-up. I called ca gastroienterologist's office today. No answer. If persistent diarrhea, possible flex sig thursday Code(s): K52.9 - NONINFECTIVE GASTROENTERITIS AND COLITIS, UNSPECIFIED
[2018-06-04] MEDS: RANITIDINE HCL 150 MG TABLET (FP) PO PRN (15:36)
--- NOTE | 2018-06-04 17:36 | PN ---
Progress Note (short form) - Note Progress Note: 1. AMIE 2. nephrolithiasis 3. ulcerative colitis 4. opioid dependence 5. HTN Current Medications Amlodipine Besylate (Norvasc -) 5 mg PO DAILY [facility] Last Admin: 06/04/18 10:29 Dose: 5 mg Heparin Sodium (Porcine) (Heparin -) 5,000 unit SQ BID [facility] Last Admin: 06/04/18 10:29 Dose: 5,000 unit Sodium Chloride (Normal Saline -) 1,000 mls @ 100 mls/hr IV ASDIR [facility] Last Admin: 06/04/18 02:07 Dose: 100 mls/hr Non-Formulary Medication (Mesalamine [Lialda]) 1.2 gm PO QID [facility] Ranitidine HCl (Zantac -) 150 mg PO DAILY PRN PRN Reason: DYSPEPSIA Last Admin: 06/04/18 15:36 Dose: 150 mg Last Vital Signs Temp Pulse Resp BP Pulse Ox 98.4 F 91 H 20 153/93 97 06/04/18 15:44 06/04/18 15:44 06/04/18 15:44 06/04/18 15:44 06/04/18 09:00 CBC, BMP 06/03/18 07:10 06/03/18 07:10 IMP- improving renal function resolving AMIE
[2018-06-04] MEDS ORDERED: ACETAMINOPHEN 325 MG TABLET (FP) PO PRN (18:54)
--- NOTE | 2018-06-04 19:00 | PN ---
Progress Note, Physician Chief Complaint: doing well - Current Medication List Current Medications: Active Medications Acetaminophen (Tylenol -) 650 mg PO Q6H PRN PRN Reason: FEVER Amlodipine Besylate (Norvasc -) 5 mg PO DAILY [facility] Last Admin: 06/04/18 10:29 Dose: 5 mg Heparin Sodium (Porcine) (Heparin -) 5,000 unit SQ BID [facility] Last Admin: 06/04/18 10:29 Dose: 5,000 unit Sodium Chloride (Normal Saline -) 1,000 mls @ 100 mls/hr IV ASDIR [facility] Last Admin: 06/04/18 02:07 Dose: 100 mls/hr Non-Formulary Medication (Mesalamine [Lialda]) 0 gm PO DAILY [facility] Ranitidine HCl (Zantac -) 150 mg PO DAILY PRN PRN Reason: DYSPEPSIA Last Admin: 06/04/18 15:36 Dose: 150 mg Zolpidem Tartrate (Ambien -) 5 mg PO HS PRN PRN Reason: INSOMNIA - Objective Vital Signs: Vital Signs Temperature 98.3 F 06/04/18 17:58 Pulse Rate 95 H 06/04/18 17:58 Respiratory Rate 20 06/04/18 17:58 Blood Pressure 120/93 06/04/18 17:58 O2 Sat by Pulse Oximetry (%) 97 06/04/18 09:00 Constitutional: Yes: Anxious HENT: Yes: Atraumatic Neck: Yes: Supple Cardiovascular: Yes: Regular Rate and Rhythm Respiratory: Yes: CTA Bilaterally Gastrointestinal: Yes: Normal Bowel Sounds Extremities: Yes: WNL Edema: No Neurological: Yes: Alert, Oriented Labs: CBC, BMP 06/03/18 07:10 06/03/18 07:10 Problem List - Problems (1) Acute kidney failure Assessment/Plan: pre renal on ivf cr improved Code(s): N17.9 - ACUTE KIDNEY FAILURE, UNSPECIFIED (2) Opioid dependence Assessment/Plan: from [facility] Code(s): F11.20 - OPIOID DEPENDENCE, UNCOMPLICATED (3) Colitis Assessment/Plan: still has diarrhea Code(s): K52.9 - NONINFECTIVE GASTROENTERITIS AND COLITIS, UNSPECIFIED (4) Dyslipidemia Code(s): E78.5 - HYPERLIPIDEMIA, UNSPECIFIED (5) GERD (gastroesophageal reflux disease) Code(s): K21.9 - GASTRO-ESOPHAGEAL REFLUX DISEASE WITHOUT ESOPHAGITIS Qualifiers: (6) HTN (hypertension) Code(s): I10 - ESSENTIAL (PRIMARY) HYPERTENSION Qualifiers: (7) MDD (major depressive disorder) Code(s): F32.9 - MAJOR DEPRESSIVE DISORDER, SINGLE EPISODE, UNSPECIFIED
[2018-06-04] MEDS: ZOLPIDEM TARTRATE 5 MG TABLET PO PRN (21:38)
[2018-06-04] MEDS: oxyCODONE HCL 5 MG TABLET PO PRN (21:38)
[2018-06-05] MEDS: oxyCODONE HCL 5 MG TABLET PO PRN ×2 (03:42→22:03)
[2018-06-05] MEDS: SODIUM CHLORIDE 1,000 ML IV SCH ×2 (06:56→22:04)
[2018-06-05 08:07] LABS: BASO % 0.6 % (0-2.0); EOS % 1.6 % (0-4.5); HEMATOCRIT 38.1 % (35.4-49); HEMOGLOBIN 12.5 GM/dL (11.7-16.9); LYMPH % 37.9 % (8-40); MCH 31.3 pg (25.7-33.7); MCHC 32.7 g/dl (32.0-35.9); MEAN CELL VOLUME 95.7 fl (80-96); MEAN PLT VOLUME 6.7 fl (7.5-11.1); MONO % 14.2 % (3.8-10.2); NEUT % 45.7 % (42.8-82.8); PLATELET COUNT 236 K/MM3 (134-434); RBC 3.98 M/mm3 (4.00-5.60); RDW 13.7 % (11.9-15.9); WHITE BLOOD COUNT 4.2 K/mm3 (4.0-10.0)
[2018-06-05 08:30] LABS: ALBUMIN 3.7 g/dl (3.4-5.0); ALK PHOS 60 U/L (45-117); ANION GAP 7 MMOL/L (8-16); BILIRUBIN,TOTAL 0.8 mg/dL (0.2-1); BLOOD UREA NITROGEN 27 mg/dL (7-18); CHLORIDE 105 mmol/L (98-107); CO2 26 mmol/L (21-32); CREATININE 1.4 mg/dL (0.55-1.3); GLUCOSE,RANDOM 87 mg/dL (74-106); POTASSIUM 4.2 mmol/L (3.5-5.1); SGOT/AST 35 U/L (15-37); SGPT/ALT 29 U/L (13-61); SODIUM 137 mmol/L (136-145); TOT PROT 6.9 g/dl (6.4-8.2)
[2018-06-05] MEDS ORDERED: PT OWN MED DRAWER 7, Y5N ONE (09:41)
[2018-06-05] MEDS: HEPARIN NA (PORCINE) 5,000 UNITS/ML 1ML VIAL SQ SCH ×2 (09:52→22:04)
[2018-06-05] MEDS: amLODIPine BESYLATE 5 MG TABLET (FP) PO SCH (09:53)
[2018-06-05] MEDS: RANITIDINE HCL 150 MG TABLET (FP) PO PRN (09:53)
[2018-06-05] MEDS: MESALAMINE PO SCH (10:00)
--- NOTE | 2018-06-05 11:06 | PN ---
Progress Note (short form) - Note Progress Note: Pt reports no more diarrhea, in fact, was constipated this morning. He now corrects his outpatient meds -- he took mesalamine (Lialda) 1.2 gm, 4 tabs daily each a.m. He also states he became hooked on oxycodone about 6 months ago, a combination of grief after his daughter's , and pain from dental work, and is trying to detox. He would like his oxycodone to be reduced. He has been a patient of Dr Pedrito Modi for the past 20 years and wishes to follow up with him as an outpatient. No objection to discharge from a GI perspective. Will no longer follow unless reconsulted.
--- NOTE | 2018-06-05 12:05 | PN ---
Progress Note, Physician History of Present Illness: no more diarrhea - Current Medication List Current Medications: Active Medications Acetaminophen (Tylenol -) 650 mg PO Q6H PRN PRN Reason: FEVER Last Admin: 06/05/18 02:18 Dose: 650 mg Amlodipine Besylate (Norvasc -) 5 mg PO DAILY [facility] Last Admin: 06/05/18 09:53 Dose: 5 mg Heparin Sodium (Porcine) (Heparin -) 5,000 unit SQ BID [facility] Last Admin: 06/05/18 09:52 Dose: 5,000 unit Sodium Chloride (Normal Saline -) 1,000 mls @ 100 mls/hr IV ASDIR REPLACED BY [facility] Last Admin: 06/05/18 06:56 Dose: Not Given Non-Formulary Medication (Mesalamine [Lialda]) 0 gm PO DAILY [facility] Oxycodone HCl (Roxicodone -) 5 mg PO Q6H PRN PRN Reason: PAIN Ranitidine HCl (Zantac -) 150 mg PO DAILY PRN PRN Reason: DYSPEPSIA Last Admin: 06/05/18 09:53 Dose: 150 mg Zolpidem Tartrate (Ambien -) 5 mg PO HS PRN PRN Reason: INSOMNIA Last Admin: 06/04/18 21:38 Dose: 5 mg - Objective Vital Signs: Vital Signs Temperature 98.1 F 06/05/18 05:53 Pulse Rate 75 06/05/18 05:53 Respiratory Rate 19 06/05/18 05:53 Blood Pressure 142/88 06/05/18 05:53 O2 Sat by Pulse Oximetry (%) 97 06/04/18 21:00 Constitutional: Yes: No Distress HENT: Yes: Atraumatic Neck: Yes: Supple Cardiovascular: Yes: Regular Rate and Rhythm Respiratory: Yes: CTA Bilaterally Gastrointestinal: Yes: Normal Bowel Sounds Extremities: Yes: WNL Edema: No Neurological: Yes: Alert, Oriented Labs: CBC, BMP 06/05/18 07:30 06/05/18 07:30 Problem List - Problems (1) Acute kidney failure Assessment/Plan: pre renal on ivf cr improved Code(s): N17.9 - ACUTE KIDNEY FAILURE, UNSPECIFIED (2) Opioid dependence Assessment/Plan: will go to [facility] for rehab Code(s): F11.20 - OPIOID DEPENDENCE, UNCOMPLICATED (3) Colitis Assessment/Plan: diarrhea resolved Code(s): K52.9 - NONINFECTIVE GASTROENTERITIS AND COLITIS, UNSPECIFIED (4) Dyslipidemia Code(s): E78.5 - HYPERLIPIDEMIA, UNSPECIFIED (5) GERD (gastroesophageal reflux disease) Code(s): K21.9 - GASTRO-ESOPHAGEAL REFLUX DISEASE WITHOUT ESOPHAGITIS Qualifiers: (6) HTN (hypertension) Code(s): I10 - ESSENTIAL (PRIMARY) HYPERTENSION Qualifiers: (7) MDD (major depressive disorder) Code(s): F32.9 - MAJOR DEPRESSIVE DISORDER, SINGLE EPISODE, UNSPECIFIED
--- NOTE | 2018-06-05 15:01 | PN ---
Progress Note (short form) - Note Progress Note: 1. AMIE 2. nephrolithiasis 3. ulcerative colitis 4. opioid dependence 5. HTN Current Medications Acetaminophen (Tylenol -) 650 mg PO Q6H PRN PRN Reason: FEVER Last Admin: 06/05/18 02:18 Dose: 650 mg Amlodipine Besylate (Norvasc -) 5 mg PO DAILY [facility] Last Admin: 06/05/18 09:53 Dose: 5 mg Heparin Sodium (Porcine) (Heparin -) 5,000 unit SQ BID [facility] Last Admin: 06/05/18 09:52 Dose: 5,000 unit Sodium Chloride (Normal Saline -) 1,000 mls @ 100 mls/hr IV ASDIR [facility] Last Admin: 06/05/18 06:56 Dose: Not Given Non-Formulary Medication (Mesalamine [Lialda]) 0 gm PO DAILY [facility] Oxycodone HCl (Roxicodone -) 5 mg PO Q6H PRN PRN Reason: PAIN Ranitidine HCl (Zantac -) 150 mg PO DAILY PRN PRN Reason: DYSPEPSIA Last Admin: 06/05/18 09:53 Dose: 150 mg Zolpidem Tartrate (Ambien -) 5 mg PO HS PRN PRN Reason: INSOMNIA Last Admin: 06/04/18 21:38 Dose: 5 mg Last Vital Signs Temp Pulse Resp BP Pulse Ox 98.1 F 75 19 142/88 97 06/05/18 05:53 06/05/18 05:53 06/05/18 05:53 06/05/18 05:53 06/04/18 21:00 CBC, BMP 06/05/18 07:30 06/05/18 07:30 IMP- improving renal function resolving AMIE continues to improve
[2018-06-05] MEDS: MAG HYDROX/AL HYDROX/SIMETH 30 ML UNIT-DOSE CUP PO PRN (22:03)
[2018-06-05] MEDS: ZOLPIDEM TARTRATE 5 MG TABLET PO PRN (22:04)
[2018-06-06] MEDS: MAG HYDROX/AL HYDROX/SIMETH 30 ML UNIT-DOSE CUP PO PRN ×2 (06:52→12:02)
[2018-06-06] MEDS ORDERED: PT OWN MED DRAWER 7, Y5N ONE (09:37)
[2018-06-06] MEDS: amLODIPine BESYLATE 5 MG TABLET (FP) PO SCH (09:43)
[2018-06-06] MEDS: MESALAMINE PO SCH (09:43)
[2018-06-06] MEDS: HEPARIN NA (PORCINE) 5,000 UNITS/ML 1ML VIAL SQ SCH ×2 (09:46→21:50)
--- NOTE | 2018-06-06 11:26 | PN ---
Progress Note (short form) - Note Progress Note: Pt seen today for complaints of heartburn and reflux. He says he had been on a PPI as an outpatient; ranitidine has not been helpful. We also had a long discussion about his addiction and depression. He has the name of a psychiatrist in [place] that he plans on seeing after he leaves the detox program. Will no longer follow unless reconsulted.
--- NOTE | 2018-06-06 11:46 | PN ---
Progress Note, Physician Chief Complaint: doing well - Current Medication List Current Medications: Active Medications Acetaminophen (Tylenol -) 650 mg PO Q6H PRN PRN Reason: FEVER Last Admin: 06/05/18 02:18 Dose: 650 mg Al Hydroxide/Mg Hydroxide (Mylanta Oral Suspension -) 30 ml PO Q6H PRN PRN Reason: INDIGESTION Last Admin: 06/06/18 06:52 Dose: 30 ml Amlodipine Besylate (Norvasc -) 5 mg PO DAILY [facility] Last Admin: 06/06/18 09:43 Dose: 5 mg Heparin Sodium (Porcine) (Heparin -) 5,000 unit SQ BID [facility] Last Admin: 06/06/18 09:46 Dose: 5,000 unit Sodium Chloride (Normal Saline -) 1,000 mls @ 100 mls/hr IV ASDIR [facility] Last Admin: 06/05/18 22:04 Dose: Not Given Non-Formulary Medication (Mesalamine [Lialda]) 0 gm PO DAILY [facility] Last Admin: 06/06/18 09:43 Dose: 1.2 gm Oxycodone HCl (Roxicodone -) 5 mg PO Q6H PRN PRN Reason: PAIN Last Admin: 06/05/18 22:03 Dose: 5 mg Pantoprazole Sodium (Protonix -) 40 mg PO DAILY [facility] Zolpidem Tartrate (Ambien -) 5 mg PO HS PRN PRN Reason: INSOMNIA Last Admin: 06/05/18 22:04 Dose: 5 mg - Objective Vital Signs: Vital Signs Temperature 97.7 F 06/05/18 18:00 Pulse Rate 99 H 06/05/18 18:00 Respiratory Rate 17 06/05/18 21:00 Blood Pressure 148/88 06/05/18 18:00 O2 Sat by Pulse Oximetry (%) 98 06/05/18 21:00 Constitutional: Yes: No Distress HENT: Yes: Atraumatic Neck: Yes: Supple Cardiovascular: Yes: Regular Rate and Rhythm Respiratory: Yes: CTA Bilaterally Gastrointestinal: Yes: Normal Bowel Sounds Extremities: Yes: WNL Neurological: Yes: Alert, Oriented Labs: CBC, BMP 06/05/18 07:30 06/05/18 07:30 Problem List - Problems (1) Acute kidney failure Assessment/Plan: cr wnl Code(s): N17.9 - ACUTE KIDNEY FAILURE, UNSPECIFIED (2) Opioid dependence Assessment/Plan: from [facility] Code(s): F11.20 - OPIOID DEPENDENCE, UNCOMPLICATED (3) Colitis Assessment/Plan: doing well no more diarrhea Code(s): K52.9 - NONINFECTIVE GASTROENTERITIS AND COLITIS, UNSPECIFIED (4) Dyslipidemia Code(s): E78.5 - HYPERLIPIDEMIA, UNSPECIFIED (5) GERD (gastroesophageal reflux disease) Code(s): K21.9 - GASTRO-ESOPHAGEAL REFLUX DISEASE WITHOUT ESOPHAGITIS Qualifiers: (6) HTN (hypertension) Code(s): I10 - ESSENTIAL (PRIMARY) HYPERTENSION Qualifiers: (7) MDD (major depressive disorder) Code(s): F32.9 - MAJOR DEPRESSIVE DISORDER, SINGLE EPISODE, UNSPECIFIED
[2018-06-06] MEDS: PANTOPRAZOLE 40 MG TABLET (FP) PO SCH (12:02)
--- NOTE | 2018-06-06 16:16 | PN ---
Progress Note (short form) - Note Progress Note: 1. AMIE 2. nephrolithiasis 3. ulcerative colitis 4. opioid dependence 5. HTN Current Medications Acetaminophen (Tylenol -) 650 mg PO Q6H PRN PRN Reason: FEVER Last Admin: 06/05/18 02:18 Dose: 650 mg Al Hydroxide/Mg Hydroxide (Mylanta Oral Suspension -) 30 ml PO Q6H PRN PRN Reason: INDIGESTION Last Admin: 06/06/18 12:02 Dose: 30 ml Amlodipine Besylate (Norvasc -) 5 mg PO DAILY [facility] Last Admin: 06/06/18 09:43 Dose: 5 mg Heparin Sodium (Porcine) (Heparin -) 5,000 unit SQ BID [facility] Last Admin: 06/06/18 09:46 Dose: 5,000 unit Sodium Chloride (Normal Saline -) 1,000 mls @ 100 mls/hr IV ASDIR [facility] Last Admin: 06/05/18 22:04 Dose: Not Given Non-Formulary Medication (Mesalamine [Lialda]) 0 gm PO DAILY [facility] Last Admin: 06/06/18 09:43 Dose: 1.2 gm Oxycodone HCl (Roxicodone -) 5 mg PO Q6H PRN PRN Reason: PAIN Last Admin: 06/05/18 22:03 Dose: 5 mg Pantoprazole Sodium (Protonix -) 40 mg PO DAILY [facility] Last Admin: 06/06/18 12:02 Dose: 40 mg Zolpidem Tartrate (Ambien -) 5 mg PO HS PRN PRN Reason: INSOMNIA Last Admin: 06/05/18 22:04 Dose: 5 mg Last Vital Signs Temp Pulse Resp BP Pulse Ox 98.3 F 90 20 139/97 98 06/06/18 14:00 06/06/18 09:00 06/06/18 09:00 06/06/18 09:00 06/05/18 21:00 alert in nad lungs clear heart reg abd soft nontender Ext no edema CBC, BMP 06/05/18 07:30 06/05/18 07:30 IMP- improving renal function no f/u labs today resolving AMIE was better yeaterday GI stable Plan- labs tomorrow encourage fluids
[2018-06-06] MEDS: ZOLPIDEM TARTRATE 5 MG TABLET PO PRN (21:50)
[2018-06-06] MEDS: oxyCODONE HCL 5 MG TABLET PO PRN (21:50)
[2018-06-06] MEDS: SODIUM CHLORIDE 1,000 ML IV SCH (21:51)
[2018-06-07 07:53] LABS: HEMATOCRIT 37.5 % (35.4-49); HEMOGLOBIN 12.3 GM/dL (11.7-16.9); MCH 31.3 pg (25.7-33.7); MCHC 32.8 g/dl (32.0-35.9); MEAN CELL VOLUME 95.3 fl (80-96); MEAN PLT VOLUME 6.8 fl (7.5-11.1); PLATELET COUNT 227 K/MM3 (134-434); RBC 3.94 M/mm3 (4.00-5.60); RDW 13.5 % (11.9-15.9); WHITE BLOOD COUNT 5.4 K/mm3 (4.0-10.0)
[2018-06-07 09:10] LABS: ALBUMIN 3.2 g/dl (3.4-5.0); ALK PHOS 50 U/L (45-117); ANION GAP 8 MMOL/L (8-16); BILIRUBIN,TOTAL 0.7 mg/dL (0.2-1); BLOOD UREA NITROGEN 18 mg/dL (7-18); CALCIUM 8.9 mg/dL (8.5-10.1); CHLORIDE 102 mmol/L (98-107); CO2 28 mmol/L (21-32); CREATININE 1.3 mg/dL (0.55-1.3); GLUCOSE,RANDOM 87 mg/dL (74-106); POTASSIUM 4.2 mmol/L (3.5-5.1); SGOT/AST 32 U/L (15-37); SGPT/ALT 27 U/L (13-61); SODIUM 138 mmol/L (136-145); TOT PROT 6.1 g/dl (6.4-8.2)
[2018-06-07] MEDS ORDERED: PT OWN MED DRAWER 7, Y5N ONE ×2 (10:40→13:07)
[2018-06-07] MEDS: HEPARIN NA (PORCINE) 5,000 UNITS/ML 1ML VIAL SQ SCH (10:53)
[2018-06-07] MEDS: amLODIPine BESYLATE 5 MG TABLET (FP) PO SCH (10:54)
[2018-06-07] MEDS: MESALAMINE PO SCH (10:54)
[2018-06-07] MEDS: PANTOPRAZOLE 40 MG TABLET (FP) PO SCH (10:54)
[2018-06-07] MEDS: oxyCODONE HCL 5 MG TABLET PO PRN (11:02)
--- NOTE | 2018-06-07 13:38 | DS ---
Physical Examination Vital Signs: Vital Signs Temperature 98.5 F 06/07/18 06:39 Pulse Rate 78 06/07/18 10:00 Respiratory Rate 18 06/07/18 10:00 Blood Pressure 156/95 06/07/18 10:00 O2 Sat by Pulse Oximetry (%) 98 06/06/18 21:00 Labs: CBC, BMP 06/07/18 06:30 06/07/18 06:30 Discharge Summary Reason For Visit: ACUTE KIDNEY INJURY Current Active Problems Acute kidney failure (Acute) - Instructions Diet, Activity, Other Instructions: d/w your gi about Lialda Referrals: Pedrito Gould [Non Staff, Medical] - Charles Amos MD [Primary Care Provider] - Disposition: I.P. ALCOHOL/SUBS ABUSE REHAB - Home Medications Comprehensive Discharge Medication List: Ambulatory Orders Acyclovir [Zovirax -] 400 mg PO BID 05/22/18 Misael/D3/Mag11/Zinc/Toll Service Observer/Tristen/Bor [Caltrate 600+D Plus Tablet] 600 mg PO DAILY 10/04 Cholecalciferol (Vitamin D3) [Vitamin D3 -] 400 unit PO DAILY 05/22/18 Hydrocodone/Acetaminophen [Hydrocodone-Acetamin 7.5-325] 1 each PO TID 05/22/18 Mesalamine [Lialda] 1.2 gm PO QID 05/22/18 Pantoprazole Sodium [Protonix -] 40 mg PO DAILY 05/22/18 Vitamin D3/Folic Acid [Roxifol-D Tablet] 500 unit PO DAILY 05/22/18 Amlodipine Besylate 5 mg PO DAILY #14 tablet 05/26/18 Atorvastatin Calcium [Lipitor] 10 mg PO HS #14 tablet 05/26/18 Quinapril HCl [Accupril -] 40 mg PO DAILY #14 tablet 05/26/[address] [facility] for rehab
[2018-06-07 14:04] VITALS: BP 130/85; PULSE 93; TEMP 98.3
[2018-06-07 16:11] LABS: URINE APPEARANCE CLEAR; URINE BILIRUBIN NEGATIVE (<2.0 mg/dL); URINE COLOR STRAW; URINE GLUCOSE (UA) NEGATIVE (NEGATIVE); URINE KETONE NEGATIVE (NEGATIVE); URINE LEUK ESTERASE NEGATIVE (NEGATIVE); URINE NITRITE NEGATIVE (NEGATIVE); URINE PROTEIN NEGATIVE (NEGATIVE); URINE UROBILINOGEN NEGATIVE mg/dL (0.2-1.0)
--- NOTE | 2018-06-07 16:37 | PN ---
Progress Note, Physician History of Present Illness: Pt seen and examined at bedside. He denies shortness of breath. He denies dysuria or hematuria. - Objective Vital Signs: Vital Signs Temperature 98.3 F 06/07/18 14:02 Pulse Rate 93 H 06/07/18 14:02 Respiratory Rate 18 06/07/18 10:00 Blood Pressure 130/85 06/07/18 14:02 O2 Sat by Pulse Oximetry (%) 98 06/06/18 21:00 Constitutional: Yes: Calm Eyes: Yes: Conjunctiva Clear HENT: Yes: Atraumatic Cardiovascular: Yes: S1, S2 Respiratory: Yes: CTA Bilaterally Gastrointestinal: Yes: Soft Genitourinary: Yes: WNL Musculoskeletal: Yes: WNL Edema: No Neurological: Yes: Oriented Psychiatric: Yes: Oriented Labs: CBC, BMP 06/07/18 06:30 06/07/18 06:30 Problem List - Problems (1) Acute kidney failure Code(s): N17.9 - ACUTE KIDNEY FAILURE, UNSPECIFIED (2) Opioid dependence Code(s): F11.20 - OPIOID DEPENDENCE, UNCOMPLICATED (3) Colitis Code(s): K52.9 - NONINFECTIVE GASTROENTERITIS AND COLITIS, UNSPECIFIED Assessment/Plan Laboratory Tests 05/23/18 05/24/18 06/02/18 07:44 07:40 07:00 Creatinine 1.6 H 1.4 H 4.0 H Urine Protein Urine Blood Ur Random Sodium Methadone Screen Benzodiazepines Screen 06/02/18 06/02/18 06/02/18 15:17 15:40 15:40 Creatinine 4.1 H Urine Protein 1+ H Urine Blood 1+ H Ur Random Sodium 26 L Methadone Screen Benzodiazepines Screen 06/02/18 06/03/18 06/07/18 15:40 07:10 14:00 Creatinine 2.5 H Urine Protein Pending Urine Blood Pending Ur Random Sodium Methadone Screen Positive A* Benzodiazepines Screen Positive A* Impression 1. AMIE 2. nephrolithiasis 3. ulcerative colitis 4. opioid dependence 5. HTN Plan - renal function is stabilizing - he will need outpt workup - follow up repeat UA to see if hematuria and proteinuria is improved - discussed plan with pt Dr Bucio
== END 2018-06-07 15:28 | disposition other institution (70) | DRG 683 ==
LOC: JER 14:07 → JERBED 16:42 → J6S 06-03 00:15
PROVIDERS: ADMIT Internal Medicine; ATTEND Internal Medicine
DX: N17.9 Acute kidney failure, unspecified (principal); F11.20 Opioid dependence, uncomplicated; K51.90 Ulcerative colitis, unspecified, without complications; I10 Essential (primary) hypertension; E78.5 Hyperlipidemia, unspecified; F10.10 Alcohol abuse, uncomplicated; K21.9 Gastro-esophageal reflux disease without esophagitis; F32.9 Major depressive disorder, single episode, unspecified; K52.9 Noninfective gastroenteritis and colitis, unspecified; Z88.0 Allergy status to penicillin; N20.0 Calculus of kidney
CPT/HCPCS: 36415; 74150-TC; 76775-TC; 76856-TC; 80053; 80307; 81003; 81015; 82436; 82570; 83540; 83690; 83735; 84133; 84156; 84300; 85025; 85027; 86140; 86704; 86706; 86708; 87045; 87046; 87177; 87209; 87324; 87340; 87389; 87449; 93005; 93010; 99285-25; J0131; J1644; J7030

== ENCOUNTER 2018-06-07 15:55 | Inpatient (IN) | payer OTHER ==
[2018-06-07 17:33] VITALS: BMI 28.1
--- NOTE | 2018-06-07 19:25 | HP ---
CIWA Score - Admission Criteria [facility] Guidelines: Admission for Medically Managed Detox: Requires at least one of the followin. CIWA greater than 12 2. Seizures within the past 24 hours 3. Delirium tremens within the past 24 hours 4. Hallucinations within the past 24 hours 5. Acute intervention needed for co occurring medical disorder 6. Acute intervention needed for co occurring psychiatric disorder 7. Severe withdrawal that cannot be handled at a lower level of care (continued vomiting, continued diarrhea, abnormal vital signs) requiring intravenous medication and/or fluids 8. Admission ROS [facility] Chief Complaint: Pt is here for continuing rehab. Pt was here from 05/23-06/02 for detox and rehab from opioid/benzo use. Pt was sent to [facility] for increased renal insufficiency- related to water loss due to diarrhea, sweating and ? relapse of Ulcerative colitis. Pt was given fluids and percocets for pain at [facility]. Renal function returned to baseline. Pt sent back here to continue rehab. Pt's daughter recently commited suicide- 08/2017. Pt has h/o ulcerative colitis, HTN, high cholesterol DUR/ISTOP: shows oxycodone prescription last dispensed 04/2018, pt is also on xanax Utox not done today From 05/22 detox admission: "73 yo gentleman here for detox from opiates. Patient reports having dental surgery December 2017 and given opiates which he noticed helped his grief (from daughter's suicide). He was given alprazolam by primary doctor. States he wants help to get off both opiates and alprazolam. Denies seizures. He is devastated by 16year old daughter's suicide last year ( hit by train). No black outs. 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 Patient is prescribed opiates but started taking more than prescribed. He is shaky, nauseous, yawning. " Allergies/Adverse Reactions: Allergies Allergy/AdvReac Type Severity Reaction Status Date / Time Penicillins Allergy Verified 06/07/18 17:46 Exam Limitations: No Limitations - Ebola screening Have you been sick,other than usual withdrawal symptoms: No - Review of Systems Constitutional: Other (feeling anxious) EENT: reports: No Symptoms Reported Respiratory: reports: No Symptoms reported Cardiac: reports: No Symptoms Reported GI: reports: No Symptoms Reported (no Sx) : reports: No Symptoms Reported Musculoskeletal: reports: No Symptoms Reported Integumentary: reports: No Symptoms Reported Neuro: reports: No Symptoms reported Endocrine: reports: No Symptoms Reported Hematology: reports: No Symptoms Reported Psychiatric: reports: No Sypmtoms Reported Patient History - Patient Medical History Hx Asthma: No Hx Chronic Obstructive Pulmonary Disease (COPD): No Hx Cancer: No Hx Cardiac Disorders: No Hx Congestive Heart Failure: No Hx Hypertension: Yes (BP:140/89) Hx Hypercholesterolemia: Yes (on meds) Hx Pacemaker: No HX Cerebrovascular Accident: No Hx Seizures: No Hx Dementia: No Hx Diabetes: No Hx Gastrointestinal Disorders: Yes (ulcerative colitis, GERD) Hx Liver Disease: No Hx Genitourinary Disorders: Yes (h/o kidney stones) Hx Sexually Transmitted Disorders: Yes (pt. reported history of Herpes & on meds ) Hx Renal Disease (ESRD): No (renal insufficiency 1.4 and increased to 4 due to dehydration) Hx Thyroid Disease: No Hx Human Immunodeficiency Virus (HIV): No Hx Hepatitis C: No Hx Depression: Yes (anxiety 06/29/2017 sixteen year old daughter committed suicide) Hx Suicide Attempt: No Hx Schizophrenia: No - Patient Surgical History Past Surgical History: Yes Hx Neurologic Surgery: No Hx Cataract Extraction: No Hx Cardiac Surgery: No Hx Lung Surgery: No Hx Breast Surgery: No Hx Breast Biopsy: No Hx Abdominal Surgery: No Hx Appendectomy: No Hx Cholecystectomy: No Hx Genitourinary Surgery: No Hx Section: No Hx Orthopedic Surgery: Yes (SPINAL FUSION OF L4+L5 ON 10/2003, RIGHT ELBOW FX AT 21 yrs) Anesthesia Reaction: No - PPD History Date: 05/24/18 Results: 0 mm. - Smoking Cessation Smoking history: Former smoker Have you smoked in the past 12 months: No If you are a former smoker, when did you quit?: 1985 Cigars Per Day: 0 Hx Chewing Tobacco Use: No Initiated information on smoking cessation: No Family Disease History - Family Disease History Family Disease History: Heart Disease: Mother (, etoh), Other: Father ( , renal disease), Mother, Sister (one - living ), Daughter (16 yr daughter committed suicide; also has healthy 19 yr old) Admission Physical Exam [facility] - Vital Signs Vital Signs: Vital Signs - 24 hr 06/07/18 17:28 Temperature 97.7 F Pulse Rate 106 H Respiratory 18 Rate Blood Pressure 153/108 H - Physical General Appearance: Yes: Within Normal Limits HEENTM: Yes: Within Normal Limits, EOMI, Hearing grossly Normal Respiratory: Yes: Within Normal Limits, Chest Non-Tender, Lungs Clear Neck: Yes: Within Normal Limits, No masses,lesions,Nodules Breast: Yes: Within Normal Limits Cardiology: Yes: Within Normal Limits, Regular Rhythm, Regular Rate Abdominal: Yes: Within Normal Limits, Normal Bowel Sounds Genitourinary: Yes: Within Normal Limits Back: Yes: Within Normal Limits Musculoskeletal: Yes: Within Normal Limits Extremities: Yes: Within Normal Limits Neurological: Yes: Within Normal Limits Integumentary: Yes: Within Normal Limits Lymphatic: Yes: Within Normal Limits - Diagnostic (1) Opioid dependence Current Visit: No Status: Acute (2) Sedative hypnotic or anxiolytic dependence Current Visit: No Status: Acute (3) Colitis Current Visit: No Status: Chronic (4) Dyslipidemia Current Visit: No Status: Chronic (5) GERD (gastroesophageal reflux disease) Current Visit: No Status: Chronic Qualifiers: (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
[2018-06-07] MEDS ORDERED: MAGNESIUM HYDROX 2400MG/30ML ORAL SUSPENSION 30 ML CUP PO PRN (19:33)
[2018-06-07] MEDS ORDERED: IBUPROFEN 400 MG TABLET (FP) PO PRN (19:33)
[2018-06-07] MEDS ORDERED: LOPERAMIDE HCL 2 MG CAPSULE PO PRN (19:33)
[2018-06-07] MEDS ORDERED: P-EPHED 60MG/TRIPROLIDI 2.5MG TABLET PO PRN (19:33)
[2018-06-07] MEDS ORDERED: ACETAMINOPHEN 325 MG TABLET (FP) PO PRN (19:33)
[2018-06-07] MEDS ORDERED: guaiFENesin/D-METHORPHAN HB 10 ML UNIT-DOSE CUPS PO PRN (19:33)
[2018-06-07] MEDS ORDERED: MENTHOL/PHENOL 1 EACH UD MM PRN (19:33)
[2018-06-07] MEDS ORDERED: MAGNESIUM CITRATE 300 ML BOTTLE PO PRN (19:33)
[2018-06-07] MEDS ORDERED: PATIENT'S OWN MEDICATION (NON-FORMULARY) (Mesalamine [Lialda] 1.2 GM) PO SCH (22:00)
[2018-06-07] MEDS: cloNIDine HCL 0.1 MG TABLET PO SCH ×2 (22:17→22:18)
[2018-06-07] MEDS: ATORVASTATIN CA 10 MG TABLET (FP) PO SCH (22:18)
[2018-06-07] MEDS: THIAMINE HCL 100 MG TABLET (FP) PO SCH (22:18)
[2018-06-07] MEDS: MELATONIN 5 MG TABLETS PO PRN (22:18)
[2018-06-07] MEDS: hydrOXYzine PAMOATE 50 MG CAPSULE (FP) PO PRN (22:18)
[2018-06-07] MEDS: ACYCLOVIR 400 MG TABLET PO SCH (22:53)
--- NOTE | 2018-06-08 09:37 | PN ---
S Progress Note Note: PT C/O HOT AND COLD SWEATS, RETURNED FROM [facility] AFTER DAYS OF ADMISSION DUE TO GI COMPLAINTS/RENAL INSUFFICIENCY. PT REPORTS BATHROOM VISITS ARE LESS AND FORMED THAN PRE-ER VISIT LAST WEEK. Vital Signs 06/08/18 06/08/18 03:30 06:41 Temperature 97.9 F Pulse Rate 91 H Respiratory 18 18 Rate Blood Pressure 137/74 REPEAT LABS PENDING. PLAN:CONTINUE REHAB TREATMENT FOLLOW UP WITH PMD MARINO THORNTON [facility] [place] FOR MEDICAL MANAGEMENT AFTER REHAB.
[2018-06-08] MEDS: PRENATAL VITAMINS W/ FOLIC ACID TABLET (FP) PO SCH (09:44)
[2018-06-08] MEDS: PANTOPRAZOLE 40 MG TABLET (FP) PO SCH (09:44)
[2018-06-08] MEDS: CHOLECALCIFEROL (VITAMIN D3) 400 UNIT TABLET (FP) PO SCH (09:44)
[2018-06-08] MEDS: amLODIPine BESYLATE 5 MG TABLET (FP) PO SCH (09:44)
[2018-06-08] MEDS: CALCIUM 500MG/VIT-D 200 UNITS COMBO TABLET (FP) PO SCH (09:44)
[2018-06-08 10:05] LABS: HEMATOCRIT 36.2 % (35.4-49); HEMOGLOBIN 11.8 GM/dL (11.7-16.9); MCH 31.3 pg (25.7-33.7); MCHC 32.6 g/dl (32.0-35.9); MEAN PLT VOLUME 7.2 fl (7.5-11.1); PLATELET COUNT 247 K/MM3 (134-434); RBC 3.78 M/mm3 (4.00-5.60); RDW 13.8 % (11.9-15.9); WHITE BLOOD COUNT 4.8 K/mm3 (4.0-10.0)
[2018-06-08] MEDS: cloNIDine HCL 0.1 MG TABLET PO SCH ×2 (10:41→21:41)
[2018-06-08] MEDS: QUINAPRIL HCL 40 MG TABLET (FP) PO SCH (10:41)
[2018-06-08 10:42] LABS: ALBUMIN 3.2 g/dl (3.4-5.0); ALK PHOS 49 U/L (45-117); ANION GAP 8 MMOL/L (8-16); BILIRUBIN,TOTAL 0.7 mg/dL (0.2-1); BLOOD UREA NITROGEN 18 mg/dL (7-18); CHLORIDE 101 mmol/L (98-107); CO2 30 mmol/L (21-32); CREATININE 1.6 mg/dL (0.55-1.3); GLUCOSE,RANDOM 86 mg/dL (74-106); POTASSIUM 4.5 mmol/L (3.5-5.1); SGOT/AST 31 U/L (15-37); SGPT/ALT 30 U/L (13-61); SODIUM 139 mmol/L (136-145)
[2018-06-08] MEDS: ACYCLOVIR 400 MG TABLET PO SCH ×2 (11:00→21:37)
[2018-06-08] MEDS: MESALAMINE 4.8 GM PO SCH (14:30)
--- NOTE | 2018-06-08 14:37 | PN ---
Psychiatric Progress Note Vital Signs: Vital Signs Period Temp Pulse Resp BP Sys/Guerin Pulse Ox Last 24 Hr 97.7 F-97.9 F 91-106 18-18 122-153/74-108 Date of Session: 06/08/18 Chief Complaint:: Readmission Note HPI: Patient addressing Opioid and Benzodiazepine Dependence comorbid with Substance-Induced Mood Disorder, Substance-Induced Sleep Disorder and Grief reaction with prolonged bereavement ROS: HLD, Ulcerative Colitis Current Medications: Active Medications Generic Name Dose Route Start Last Admin Trade Name Freq PRN Reason Stop Dose Admin Acetaminophen 650 mg 06/07/18 19:33 Tylenol - PO Q4H PRN FEVER Acyclovir 400 mg 06/07/18 22:00 06/08/18 11:00 Zovirax - PO 400 mg BID BYRON Administration Al Hydroxide/Mg Hydroxide 30 ml 06/07/18 19:33 Mylanta Oral Suspension - PO Q6H PRN DYSPEPSIA Amlodipine Besylate 5 mg 06/08/18 10:00 06/08/18 09:44 Norvasc - PO 5 mg DAILY BYRON Administration Atorvastatin Calcium 10 mg 06/07/18 22:00 06/07/18 22:18 Lipitor - PO 10 mg HS BYRON Administration Calcium Carbonate/Cholecalciferol 1 tab 06/08/18 10:00 06/08/18 09:44 Os-Misael 500+D - PO 1 tab DAILY BYRON Administration Cholecalciferol 400 unit 06/08/18 10:00 06/08/18 09:44 Vitamin D3 - PO 400 unit DAILY BYRON Administration Clonidine 0.2 mg 06/08/18 10:00 06/08/18 10:41 Catapres - PO 0.2 mg BID BYRON Administration Eucalyptus/Menthol/Phenol/Sorbitol 1 each 06/07/18 19:33 Cepastat Lozenge - MM Q4H PRN SORE THROAT Guaifenesin 10 ml 06/07/18 19:33 Robitussin Dm - PO Q6H PRN COUGH Hydroxyzine Pamoate 50 mg 06/07/18 19:33 06/07/18 22:18 Vistaril - PO 50 mg Q6H PRN Administration AGITATION Ibuprofen 400 mg 06/07/18 19:33 Motrin - PO Q6H PRN Pain level 4-6 Loperamide HCl 4 mg 06/07/18 19:33 Imodium - PO Q6H PRN DIARRHEA Magnesium Citrate 300 ml 06/07/18 19:33 Citroma - PO Q48H PRN CONSTIPATION Magnesium Hydroxide 30 ml 06/07/18 19:33 Milk Of Magnesia - PO DAILY PRN CONSTIPATION Melatonin 5 mg 06/07/18 22:00 06/07/18 22:18 Melatonin PO 5 mg HS PRN Administration INSOMNIA Non-Formulary Medication 4.8 gm 06/08/18 13:30 Mesalamine [Lialda] PO DAILY BYRON Pantoprazole Sodium 40 mg 06/08/18 10:00 06/08/18 09:44 Protonix - PO 40 mg DAILY BYRON Administration Multivit/Folic Acid/Iron 1 tab 06/08/18 10:00 06/08/18 09:44 Vitamins (Sjr) - PO 1 tab DAILY YBRON Administration Pseudoephedrine/Triprolidine 1 combo 06/07/18 19:33 Actifed - PO TID PRN NASAL CONGESTION Quinapril HCl 40 mg 06/08/18 10:00 06/08/18 10:41 Accupril - PO 40 mg DAILY BYRON Administration Thiamine HCl 100 mg 06/07/18 22:00 06/07/18 22:18 Vitamin B1 - PO 100 mg HS BYRON Administration Current Side Effect: No Lab tests ordered: Yes Lab tests reviewed: Yes Provider note:: Patient was originally admitted to inpatient detox in this facility for opioid and benzodiazepine. After completion of detox on 07/27/17, he was transferred to for inpatient rehab. While there, he developed retractable diarrhea and his creatinine dropped to 4 from 1.4. On 06/02/18 he was transferred to [facility] where he was admitted for investigation and management. After undergoing appropriate investigative procedures, he was diagnosed with flared up of Ulcerative Colitis AK. He was treated and transferred back to [facility] to complete inpatient rehab Total face to face time:: 25 Mental Status Exam - Mental Status Exam Alert and Oriented to: Time, Place, Person Cognitive Function: Fair Patient Appearance: Well Groomed Mood: Hopeful, Euthymic Patient Behavior: Cooperative Speech Pattern: Clear Voice Loudness: Normal Thought Process: Intact, Goal Oriented Thought Disorder: Not Present Hallucinations: Denies Suicidal Ideation: Denies Homicidal Ideation: Denies Insight/Judgement: Fair Sleep: Poorly Appetite: Fair Muscle strength/Tone: Normal Gait/Station: Normal Psychiatric Treatment Plan - Problem List (1) Opioid dependence Current Visit: No (2) Sedative hypnotic or anxiolytic dependence Current Visit: No (3) Substance induced mood disorder Current Visit: No (4) Substance-induced sleep disorder Current Visit: No (5) Colitis Current Visit: No (6) Acute kidney failure Current Visit: No Initial treatment plan: 1) Readmit to [facility] for completion og rehab. 2) Continue current medication including Trazadone 25 mg po HS. 3) Monitor progress
[2018-06-08] MEDS: ATORVASTATIN CA 10 MG TABLET (FP) PO SCH (21:37)
[2018-06-08] MEDS: THIAMINE HCL 100 MG TABLET (FP) PO SCH (21:37)
[2018-06-08] MEDS: hydrOXYzine PAMOATE 50 MG CAPSULE (FP) PO PRN (21:40)
[2018-06-08] MEDS: MELATONIN 5 MG TABLETS PO PRN (21:40)
[2018-06-09] MEDS ORDERED: PT OWN MED DRAWER 7, Y5N ONE ×2 (08:46→20:07)
[2018-06-09] MEDS: PRENATAL VITAMINS W/ FOLIC ACID TABLET (FP) PO SCH (09:56)
[2018-06-09] MEDS: CALCIUM 500MG/VIT-D 200 UNITS COMBO TABLET (FP) PO SCH (09:56)
[2018-06-09] MEDS: PANTOPRAZOLE 40 MG TABLET (FP) PO SCH (09:56)
[2018-06-09] MEDS: MESALAMINE 4.8 GM PO SCH (09:57)
[2018-06-09] MEDS: hydrOXYzine PAMOATE 50 MG CAPSULE (FP) PO PRN (09:57)
[2018-06-09] MEDS: ACYCLOVIR 400 MG TABLET PO SCH ×2 (09:57→21:25)
[2018-06-09] MEDS: CHOLECALCIFEROL (VITAMIN D3) 400 UNIT TABLET (FP) PO SCH (09:57)
[2018-06-09] MEDS: QUINAPRIL HCL 40 MG TABLET (FP) PO SCH (09:58)
[2018-06-09] MEDS: amLODIPine BESYLATE 5 MG TABLET (FP) PO SCH (09:58)
[2018-06-09] MEDS: cloNIDine HCL 0.1 MG TABLET PO SCH ×2 (09:58→21:25)
[2018-06-09] MEDS: PSYLLIUM 5.85 GM PACKET PO SCH ×2 (12:41→21:26)
[2018-06-09] MEDS: ATORVASTATIN CA 10 MG TABLET (FP) PO SCH (21:25)
[2018-06-09] MEDS: THIAMINE HCL 100 MG TABLET (FP) PO SCH (21:26)
[2018-06-10] MEDS ORDERED: PT OWN MED DRAWER 7, Y5N ONE ×2 (08:26→20:01)
[2018-06-10] MEDS: cloNIDine HCL 0.1 MG TABLET PO SCH ×2 (10:16→21:57)
[2018-06-10] MEDS: ACYCLOVIR 400 MG TABLET PO SCH ×2 (10:16→21:57)
[2018-06-10] MEDS: PANTOPRAZOLE 40 MG TABLET (FP) PO SCH (10:16)
[2018-06-10] MEDS: PSYLLIUM 5.85 GM PACKET PO SCH ×2 (10:16→21:57)
[2018-06-10] MEDS: PRENATAL VITAMINS W/ FOLIC ACID TABLET (FP) PO SCH (10:17)
[2018-06-10] MEDS: CHOLECALCIFEROL (VITAMIN D3) 400 UNIT TABLET (FP) PO SCH (10:17)
[2018-06-10] MEDS: CALCIUM 500MG/VIT-D 200 UNITS COMBO TABLET (FP) PO SCH (10:17)
[2018-06-10] MEDS: amLODIPine BESYLATE 5 MG TABLET (FP) PO SCH (10:17)
[2018-06-10] MEDS: MESALAMINE 4.8 GM PO SCH (10:17)
[2018-06-10] MEDS: QUINAPRIL HCL 40 MG TABLET (FP) PO SCH (10:17)
[2018-06-10] MEDS: MELATONIN 5 MG TABLETS PO PRN (21:57)
[2018-06-10] MEDS: THIAMINE HCL 100 MG TABLET (FP) PO SCH (21:57)
[2018-06-10] MEDS: ATORVASTATIN CA 10 MG TABLET (FP) PO SCH (21:57)
[2018-06-11] MEDS ORDERED: PT OWN MED DRAWER 7, Y5N ONE ×4 (08:43→19:39)
[2018-06-11] MEDS: MESALAMINE 4.8 GM PO SCH (10:16)
[2018-06-11] MEDS: PANTOPRAZOLE 40 MG TABLET (FP) PO SCH (10:16)
[2018-06-11] MEDS: PSYLLIUM 5.85 GM PACKET PO SCH ×2 (10:16→21:26)
[2018-06-11] MEDS: amLODIPine BESYLATE 5 MG TABLET (FP) PO SCH (10:16)
[2018-06-11] MEDS: CALCIUM 500MG/VIT-D 200 UNITS COMBO TABLET (FP) PO SCH (10:16)
[2018-06-11] MEDS: CHOLECALCIFEROL (VITAMIN D3) 400 UNIT TABLET (FP) PO SCH (10:16)
[2018-06-11] MEDS: cloNIDine HCL 0.1 MG TABLET PO SCH (10:16)
[2018-06-11] MEDS: PRENATAL VITAMINS W/ FOLIC ACID TABLET (FP) PO SCH (10:16)
[2018-06-11] MEDS: QUINAPRIL HCL 40 MG TABLET (FP) PO SCH (10:17)
[2018-06-11] MEDS: ACYCLOVIR 400 MG TABLET PO SCH ×2 (10:18→21:26)
--- NOTE | 2018-06-11 11:48 | PN ---
S Progress Note (SOAP) Subjective: C/o increased urination w/ 11 x/ night urination. Has hesitancy and difficulty initiating flow. Denies blood or burning. States continuing to crave opiates. Crying and continues grieving over loss of daughter who committed suicide 1 year ago. Objective: A & O x 3. Vital Signs 06/11/18 06/11/18 06/11/18 06:53 09:30 10:12 Pulse Rate 71 101 H 64 Respiratory 16 18 18 Rate Blood Pressure 104/71 99/64 113/71 Lab Results WBC 4.8 K/mm3 (4.0-10.0) 06/08/18 07:00 RBC 3.78 M/mm3 (4.00-5.60) L 06/08/18 07:00 Hgb 11.8 GM/dL (11.7-16.9) 06/08/18 07:00 Hct 36.2 % (35.4-49) 06/08/18 07:00 MCV 96.0 fl (80-96) 06/08/18 07:00 MCHC 32.6 g/dl (32.0-35.9) 06/08/18 07:00 RDW 13.8 % (11.9-15.9) 06/08/18 07:00 Plt Count 247 K/MM3 (134-434) 06/08/18 07:00 Sodium 139 mmol/L (136-145) 06/08/18 07:00 Potassium 4.5 mmol/L (3.5-5.1) 06/08/18 07:00 Chloride 101 mmol/L (98-107) 06/08/18 07:00 Carbon Dioxide 30 mmol/L (21-32) 06/08/18 07:00 Anion Gap 8 MMOL/L (8-16) 06/08/18 07:00 BUN 18 mg/dL (7-18) 06/08/18 07:00 Creatinine 1.6 mg/dL (0.55-1.3) H 06/08/18 07:00 Random Glucose 86 mg/dL (74-106) 06/08/18 07:00 Calcium 9.0 mg/dL (8.5-10.1) 06/08/18 07:00 Labs reviewed. Assessment: Early Opiate and anxiolytic remission. Continued opiate withdrawal symptoms/cravings. Hx: BPH w/ nocturia Plan: [facility] called and Fl[facility]ax verified current prescription of Flomax 0.4 mg PO BID refilled in April. . Discussed w/ patient and will start on Flomax 0.8 mg ER beginning today. Discussion with Counselor to locate a Suboxone treatment provider for continuation of medication upon discharge. Appointment w/ [facility] for Suboxone f/u upon discharge. Will start on Suboxone 2 mg SL daily.
[2018-06-11] MEDS: TAMSULOSIN HCL 0.4 MG CAP PO SCH (13:09)
[2018-06-11] MEDS: BUPRENORPHINE/NALOXONE 2 MG/0.5 MG FILM PACKET SL SCH (13:09)
[2018-06-11] MEDS: THIAMINE HCL 100 MG TABLET (FP) PO SCH (21:25)
[2018-06-11] MEDS: ATORVASTATIN CA 10 MG TABLET (FP) PO SCH (21:26)
[2018-06-11] MEDS: hydrOXYzine PAMOATE 50 MG CAPSULE (FP) PO PRN (21:26)
[2018-06-11] MEDS: MELATONIN 5 MG TABLETS PO PRN (21:26)
[2018-06-12] MEDS: hydrOXYzine PAMOATE 50 MG CAPSULE (FP) PO PRN ×2 (03:35→21:25)
[2018-06-12] MEDS ORDERED: PT OWN MED DRAWER 7, Y5N ONE ×2 (08:58→12:11)
[2018-06-12] MEDS: PANTOPRAZOLE 40 MG TABLET (FP) PO SCH (10:02)
[2018-06-12] MEDS: QUINAPRIL HCL 40 MG TABLET (FP) PO SCH (10:02)
[2018-06-12] MEDS: PRENATAL VITAMINS W/ FOLIC ACID TABLET (FP) PO SCH (10:02)
[2018-06-12] MEDS: MESALAMINE 4.8 GM PO SCH (10:02)
[2018-06-12] MEDS: BUPRENORPHINE/NALOXONE 2 MG/0.5 MG FILM PACKET SL SCH (10:02)
[2018-06-12] MEDS: amLODIPine BESYLATE 5 MG TABLET (FP) PO SCH (10:02)
[2018-06-12] MEDS: CHOLECALCIFEROL (VITAMIN D3) 400 UNIT TABLET (FP) PO SCH (10:02)
[2018-06-12] MEDS: TAMSULOSIN HCL 0.4 MG CAP PO SCH (10:02)
[2018-06-12] MEDS: CALCIUM 500MG/VIT-D 200 UNITS COMBO TABLET (FP) PO SCH (10:02)
[2018-06-12] MEDS: PSYLLIUM 5.85 GM PACKET PO SCH ×2 (10:02→21:26)
[2018-06-12] MEDS: ACYCLOVIR 400 MG TABLET PO SCH ×2 (10:03→21:26)
[2018-06-12] MEDS: MELATONIN 5 MG TABLETS PO PRN (21:25)
[2018-06-12] MEDS: ATORVASTATIN CA 10 MG TABLET (FP) PO SCH (21:25)
[2018-06-12] MEDS: MAG HYDROX/AL HYDROX/SIMETH 30 ML UNIT-DOSE CUP PO PRN (21:25)
[2018-06-12] MEDS: THIAMINE HCL 100 MG TABLET (FP) PO SCH (21:26)
[2018-06-13] MEDS ORDERED: PT OWN MED DRAWER 7, Y5N ONE ×2 (09:03→09:44)
[2018-06-13] MEDS: TAMSULOSIN HCL 0.4 MG CAP PO SCH (09:43)
[2018-06-13] MEDS: CALCIUM 500MG/VIT-D 200 UNITS COMBO TABLET (FP) PO SCH (09:44)
[2018-06-13] MEDS: amLODIPine BESYLATE 5 MG TABLET (FP) PO SCH (09:45)
[2018-06-13] MEDS: PSYLLIUM 5.85 GM PACKET PO SCH ×2 (09:45→21:25)
[2018-06-13] MEDS: PRENATAL VITAMINS W/ FOLIC ACID TABLET (FP) PO SCH (09:45)
[2018-06-13] MEDS: CHOLECALCIFEROL (VITAMIN D3) 400 UNIT TABLET (FP) PO SCH (09:45)
[2018-06-13] MEDS: BUPRENORPHINE/NALOXONE 2 MG/0.5 MG FILM PACKET SL SCH (09:45)
[2018-06-13] MEDS: PANTOPRAZOLE 40 MG TABLET (FP) PO SCH (09:45)
[2018-06-13] MEDS: MESALAMINE 4.8 GM PO SCH (09:45)
[2018-06-13] MEDS: QUINAPRIL HCL 40 MG TABLET (FP) PO SCH (09:45)
[2018-06-13] MEDS ORDERED: ACYCLOVIR 200 MG CAPSULE ONE (10:54)
[2018-06-13] MEDS: ACYCLOVIR 400 MG TABLET PO SCH ×2 (10:57→21:25)
[2018-06-13] MEDS: MELATONIN 5 MG TABLETS PO PRN (21:23)
[2018-06-13] MEDS: THIAMINE HCL 100 MG TABLET (FP) PO SCH (21:24)
[2018-06-13] MEDS: hydrOXYzine PAMOATE 50 MG CAPSULE (FP) PO PRN (21:24)
[2018-06-13] MEDS: ATORVASTATIN CA 10 MG TABLET (FP) PO SCH (21:24)
[2018-06-14] MEDS: PRENATAL VITAMINS W/ FOLIC ACID TABLET (FP) PO SCH (09:51)
[2018-06-14] MEDS: PANTOPRAZOLE 40 MG TABLET (FP) PO SCH (09:51)
[2018-06-14] MEDS: QUINAPRIL HCL 40 MG TABLET (FP) PO SCH (09:52)
[2018-06-14] MEDS: CALCIUM 500MG/VIT-D 200 UNITS COMBO TABLET (FP) PO SCH (09:52)
[2018-06-14] MEDS: amLODIPine BESYLATE 5 MG TABLET (FP) PO SCH (09:52)
[2018-06-14] MEDS: CHOLECALCIFEROL (VITAMIN D3) 400 UNIT TABLET (FP) PO SCH (09:52)
[2018-06-14] MEDS: BUPRENORPHINE/NALOXONE 2 MG/0.5 MG FILM PACKET SL SCH ×2 (09:54→21:07)
[2018-06-14] MEDS: MESALAMINE 4.8 GM PO SCH (09:55)
[2018-06-14] MEDS: PSYLLIUM 5.85 GM PACKET PO SCH ×2 (09:56→21:06)
[2018-06-14] MEDS: TAMSULOSIN HCL 0.4 MG CAP PO SCH (11:46)
[2018-06-14] MEDS: ACYCLOVIR 400 MG TABLET PO SCH (13:25)
--- NOTE | 2018-06-14 14:59 | PN ---
S Progress Note Note: PT REQUESTING FOR INCREASED SUBOXONE DOSE DUE TO CONTINUED WITHDRAWAL SX-ANXIETY ,AGITATION,HOT/COLD SWEATS. Vital Signs 06/14/18 07:20 Temperature 98.1 F Pulse Rate 78 Respiratory 18 Rate Blood Pressure 134/83 NAD PLAN;SUBOXONE 4MG/1 MG SL BID PT WILL FOLLOW UP WITH SUBOXONE MAINTENANCE TREATMENT AT [place], [place].
[2018-06-14] MEDS: THIAMINE HCL 100 MG TABLET (FP) PO SCH (21:06)
[2018-06-14] MEDS: ATORVASTATIN CA 10 MG TABLET (FP) PO SCH (21:06)
[2018-06-14] MEDS: MELATONIN 5 MG TABLETS PO PRN (21:07)
[2018-06-14] MEDS: hydrOXYzine PAMOATE 50 MG CAPSULE (FP) PO PRN (21:07)
[2018-06-15] MEDS: hydrOXYzine PAMOATE 50 MG CAPSULE (FP) PO PRN ×3 (03:00→21:26)
[2018-06-15] MEDS ORDERED: PT OWN MED DRAWER 7, Y5N ONE ×2 (08:50→10:47)
[2018-06-15] MEDS: TAMSULOSIN HCL 0.4 MG CAP PO SCH (09:30)
[2018-06-15] MEDS: CHOLECALCIFEROL (VITAMIN D3) 400 UNIT TABLET (FP) PO SCH (10:00)
[2018-06-15] MEDS: MESALAMINE 4.8 GM PO SCH (10:00)
[2018-06-15] MEDS: PRENATAL VITAMINS W/ FOLIC ACID TABLET (FP) PO SCH (10:00)
[2018-06-15] MEDS: amLODIPine BESYLATE 5 MG TABLET (FP) PO SCH (10:00)
[2018-06-15] MEDS: CALCIUM 500MG/VIT-D 200 UNITS COMBO TABLET (FP) PO SCH (10:00)
[2018-06-15] MEDS: PANTOPRAZOLE 40 MG TABLET (FP) PO SCH (10:00)
[2018-06-15] MEDS: PSYLLIUM 5.85 GM PACKET PO SCH ×2 (10:02→21:28)
[2018-06-15] MEDS: BUPRENORPHINE/NALOXONE 2 MG/0.5 MG FILM PACKET SL SCH ×2 (10:02→21:26)
[2018-06-15] MEDS: QUINAPRIL HCL 40 MG TABLET (FP) PO SCH (10:02)
[2018-06-15] MEDS: MAG HYDROX/AL HYDROX/SIMETH 30 ML UNIT-DOSE CUP PO PRN (20:00)
[2018-06-15] MEDS: THIAMINE HCL 100 MG TABLET (FP) PO SCH (21:26)
[2018-06-15] MEDS: ATORVASTATIN CA 10 MG TABLET (FP) PO SCH (21:26)
[2018-06-15] MEDS: MELATONIN 5 MG TABLETS PO PRN (21:27)
[2018-06-16] MEDS: MAG HYDROX/AL HYDROX/SIMETH 30 ML UNIT-DOSE CUP PO PRN (05:36)
[2018-06-16] MEDS: CHOLECALCIFEROL (VITAMIN D3) 400 UNIT TABLET (FP) PO SCH (09:57)
[2018-06-16] MEDS: hydrOXYzine PAMOATE 50 MG CAPSULE (FP) PO PRN ×3 (09:57→21:56)
[2018-06-16] MEDS: TAMSULOSIN HCL 0.4 MG CAP PO SCH (09:57)
[2018-06-16] MEDS: PRENATAL VITAMINS W/ FOLIC ACID TABLET (FP) PO SCH (09:57)
[2018-06-16] MEDS: PANTOPRAZOLE 40 MG TABLET (FP) PO SCH (09:58)
[2018-06-16] MEDS: QUINAPRIL HCL 40 MG TABLET (FP) PO SCH (09:58)
[2018-06-16] MEDS: CALCIUM 500MG/VIT-D 200 UNITS COMBO TABLET (FP) PO SCH (09:58)
[2018-06-16] MEDS: BUPRENORPHINE/NALOXONE 2 MG/0.5 MG FILM PACKET SL SCH ×2 (09:58→17:57)
[2018-06-16] MEDS: amLODIPine BESYLATE 5 MG TABLET (FP) PO SCH (09:58)
[2018-06-16] MEDS: MESALAMINE 4.8 GM PO SCH (09:58)
[2018-06-16] MEDS: PSYLLIUM 5.85 GM PACKET PO SCH ×2 (09:59→21:55)
[2018-06-16] MEDS ORDERED: PT OWN MED DRAWER 7, Y5N ONE (10:46)
[2018-06-16] MEDS: ATORVASTATIN CA 10 MG TABLET (FP) PO SCH (21:54)
[2018-06-16] MEDS: THIAMINE HCL 100 MG TABLET (FP) PO SCH (21:54)
[2018-06-16] MEDS: MELATONIN 5 MG TABLETS PO PRN (21:55)
[2018-06-17] MEDS: BUPRENORPHINE/NALOXONE 2 MG/0.5 MG FILM PACKET SL SCH ×2 (06:04→17:00)
[2018-06-17] MEDS ORDERED: PT OWN MED DRAWER 7, Y5N ONE ×2 (08:45→10:30)
[2018-06-17] MEDS: TAMSULOSIN HCL 0.4 MG CAP PO SCH (09:30)
[2018-06-17] MEDS: MESALAMINE 4.8 GM PO SCH (09:44)
[2018-06-17] MEDS: QUINAPRIL HCL 40 MG TABLET (FP) PO SCH (09:44)
[2018-06-17] MEDS: PRENATAL VITAMINS W/ FOLIC ACID TABLET (FP) PO SCH (09:44)
[2018-06-17] MEDS: CALCIUM 500MG/VIT-D 200 UNITS COMBO TABLET (FP) PO SCH (09:44)
[2018-06-17] MEDS: amLODIPine BESYLATE 5 MG TABLET (FP) PO SCH (09:44)
[2018-06-17] MEDS: PANTOPRAZOLE 40 MG TABLET (FP) PO SCH (09:44)
[2018-06-17] MEDS: CHOLECALCIFEROL (VITAMIN D3) 400 UNIT TABLET (FP) PO SCH (09:44)
[2018-06-17] MEDS: hydrOXYzine PAMOATE 50 MG CAPSULE (FP) PO PRN ×3 (09:45→21:54)
[2018-06-17] MEDS: PSYLLIUM 5.85 GM PACKET PO SCH ×2 (09:45→21:54)
[2018-06-17] MEDS: ATORVASTATIN CA 10 MG TABLET (FP) PO SCH (21:54)
[2018-06-17] MEDS: THIAMINE HCL 100 MG TABLET (FP) PO SCH (21:54)
[2018-06-17] MEDS: MELATONIN 5 MG TABLETS PO PRN (21:55)
[2018-06-18] MEDS: BUPRENORPHINE/NALOXONE 2 MG/0.5 MG FILM PACKET SL SCH ×2 (06:12→17:49)
[2018-06-18] MEDS ORDERED: PT OWN MED DRAWER 7, Y5N ONE (08:22)
[2018-06-18] MEDS: TAMSULOSIN HCL 0.4 MG CAP PO SCH (09:08)
[2018-06-18] MEDS: MESALAMINE 4.8 GM PO SCH (10:08)
[2018-06-18] MEDS: PANTOPRAZOLE 40 MG TABLET (FP) PO SCH (10:10)
[2018-06-18] MEDS: PRENATAL VITAMINS W/ FOLIC ACID TABLET (FP) PO SCH (10:10)
[2018-06-18] MEDS: CHOLECALCIFEROL (VITAMIN D3) 400 UNIT TABLET (FP) PO SCH (10:10)
[2018-06-18] MEDS: CALCIUM 500MG/VIT-D 200 UNITS COMBO TABLET (FP) PO SCH (10:10)
[2018-06-18] MEDS: PSYLLIUM 5.85 GM PACKET PO SCH ×2 (10:11→21:54)
[2018-06-18] MEDS: hydrOXYzine PAMOATE 50 MG CAPSULE (FP) PO PRN ×3 (10:11→21:54)
[2018-06-18] MEDS: amLODIPine BESYLATE 5 MG TABLET (FP) PO SCH (10:11)
[2018-06-18] MEDS: QUINAPRIL HCL 40 MG TABLET (FP) PO SCH (10:11)
[2018-06-18] MEDS: MELATONIN 5 MG TABLETS PO PRN (21:54)
[2018-06-18] MEDS: ATORVASTATIN CA 10 MG TABLET (FP) PO SCH (21:54)
[2018-06-18] MEDS: THIAMINE HCL 100 MG TABLET (FP) PO SCH (21:54)
[2018-06-19] MEDS: BUPRENORPHINE/NALOXONE 2 MG/0.5 MG FILM PACKET SL SCH ×2 (06:08→17:31)
[2018-06-19] MEDS: TAMSULOSIN HCL 0.4 MG CAP PO SCH (08:12)
[2018-06-19] MEDS ORDERED: PT OWN MED DRAWER 7, Y5N ONE ×2 (08:18→14:10)
[2018-06-19] MEDS: QUINAPRIL HCL 40 MG TABLET (FP) PO SCH (10:03)
[2018-06-19] MEDS: MESALAMINE 4.8 GM PO SCH (10:03)
[2018-06-19] MEDS: CALCIUM 500MG/VIT-D 200 UNITS COMBO TABLET (FP) PO SCH (10:04)
[2018-06-19] MEDS: amLODIPine BESYLATE 5 MG TABLET (FP) PO SCH (10:04)
[2018-06-19] MEDS: PRENATAL VITAMINS W/ FOLIC ACID TABLET (FP) PO SCH (10:04)
[2018-06-19] MEDS: CHOLECALCIFEROL (VITAMIN D3) 400 UNIT TABLET (FP) PO SCH (10:04)
[2018-06-19] MEDS: PANTOPRAZOLE 40 MG TABLET (FP) PO SCH (10:04)
[2018-06-19] MEDS: PSYLLIUM 5.85 GM PACKET PO SCH ×2 (10:04→22:01)
[2018-06-19] MEDS: hydrOXYzine PAMOATE 50 MG CAPSULE (FP) PO PRN ×2 (10:06→22:01)
[2018-06-19] MEDS: MAG HYDROX/AL HYDROX/SIMETH 30 ML UNIT-DOSE CUP PO PRN (19:58)
[2018-06-19] MEDS: THIAMINE HCL 100 MG TABLET (FP) PO SCH (22:00)
[2018-06-19] MEDS: MELATONIN 5 MG TABLETS PO PRN (22:01)
[2018-06-19] MEDS: ATORVASTATIN CA 10 MG TABLET (FP) PO SCH (22:01)
[2018-06-20] MEDS ORDERED: PT OWN MED DRAWER 7, Y5N ONE ×2 (03:46→08:20)
[2018-06-20] MEDS: BUPRENORPHINE/NALOXONE 2 MG/0.5 MG FILM PACKET SL SCH ×2 (06:09→17:23)
[2018-06-20] MEDS: TAMSULOSIN HCL 0.4 MG CAP PO SCH (07:51)
[2018-06-20] MEDS: PANTOPRAZOLE 40 MG TABLET (FP) PO SCH (10:04)
[2018-06-20] MEDS: QUINAPRIL HCL 40 MG TABLET (FP) PO SCH (10:04)
[2018-06-20] MEDS: MESALAMINE 4.8 GM PO SCH (10:04)
[2018-06-20] MEDS: CHOLECALCIFEROL (VITAMIN D3) 400 UNIT TABLET (FP) PO SCH (10:04)
[2018-06-20] MEDS: PSYLLIUM 5.85 GM PACKET PO SCH ×2 (10:05→22:22)
[2018-06-20] MEDS: PRENATAL VITAMINS W/ FOLIC ACID TABLET (FP) PO SCH (10:05)
[2018-06-20] MEDS: amLODIPine BESYLATE 5 MG TABLET (FP) PO SCH (10:05)
[2018-06-20] MEDS: CALCIUM 500MG/VIT-D 200 UNITS COMBO TABLET (FP) PO SCH (10:05)
[2018-06-20] MEDS: hydrOXYzine PAMOATE 50 MG CAPSULE (FP) PO PRN ×2 (10:06→21:40)
[2018-06-20] MEDS: ATORVASTATIN CA 10 MG TABLET (FP) PO SCH (21:39)
[2018-06-20] MEDS: THIAMINE HCL 100 MG TABLET (FP) PO SCH (21:39)
[2018-06-20] MEDS: MELATONIN 5 MG TABLETS PO PRN (21:40)
[2018-06-21] MEDS: BUPRENORPHINE/NALOXONE 2 MG/0.5 MG FILM PACKET SL SCH ×2 (06:06→17:53)
[2018-06-21] MEDS ORDERED: PT OWN MED DRAWER 7, Y5N ONE ×2 (08:47→10:41)
[2018-06-21] MEDS: QUINAPRIL HCL 40 MG TABLET (FP) PO SCH (10:39)
[2018-06-21] MEDS: TAMSULOSIN HCL 0.4 MG CAP PO SCH (10:40)
[2018-06-21] MEDS: PANTOPRAZOLE 40 MG TABLET (FP) PO SCH (10:41)
[2018-06-21] MEDS: CALCIUM 500MG/VIT-D 200 UNITS COMBO TABLET (FP) PO SCH (10:41)
[2018-06-21] MEDS: amLODIPine BESYLATE 5 MG TABLET (FP) PO SCH (10:42)
[2018-06-21] MEDS: CHOLECALCIFEROL (VITAMIN D3) 400 UNIT TABLET (FP) PO SCH (10:42)
[2018-06-21] MEDS: PRENATAL VITAMINS W/ FOLIC ACID TABLET (FP) PO SCH (10:42)
[2018-06-21] MEDS: PSYLLIUM 5.85 GM PACKET PO SCH ×2 (10:43→21:42)
[2018-06-21] MEDS: MESALAMINE 4.8 GM PO SCH (10:43)
[2018-06-21] MEDS: hydrOXYzine PAMOATE 50 MG CAPSULE (FP) PO PRN ×2 (10:45→21:41)
[2018-06-21] MEDS: ATORVASTATIN CA 10 MG TABLET (FP) PO SCH (21:41)
[2018-06-21] MEDS: THIAMINE HCL 100 MG TABLET (FP) PO SCH (21:41)
[2018-06-21] MEDS: MELATONIN 5 MG TABLETS PO PRN (21:42)
[2018-06-22] MEDS ORDERED: BUPRENORPHINE/NALOXONE 2 MG/0.5 MG FILM PACKET SL SCH (06:00)
[2018-06-22] MEDS: BUPRENORPHINE/NALOXONE 2 MG/0.5 MG FILM PACKET SL SCH ×2 (06:12→17:39)
[2018-06-22] MEDS: TAMSULOSIN HCL 0.4 MG CAP PO SCH (09:51)
[2018-06-22] MEDS: MESALAMINE 4.8 GM PO SCH (09:51)
[2018-06-22] MEDS: CALCIUM 500MG/VIT-D 200 UNITS COMBO TABLET (FP) PO SCH (09:51)
[2018-06-22] MEDS: PANTOPRAZOLE 40 MG TABLET (FP) PO SCH (09:51)
[2018-06-22] MEDS: PRENATAL VITAMINS W/ FOLIC ACID TABLET (FP) PO SCH (09:51)
[2018-06-22] MEDS: amLODIPine BESYLATE 5 MG TABLET (FP) PO SCH (09:52)
[2018-06-22] MEDS: PSYLLIUM 5.85 GM PACKET PO SCH ×2 (09:52→21:29)
[2018-06-22] MEDS: CHOLECALCIFEROL (VITAMIN D3) 400 UNIT TABLET (FP) PO SCH (09:52)
[2018-06-22] MEDS: QUINAPRIL HCL 40 MG TABLET (FP) PO SCH (09:52)
[2018-06-22] MEDS: hydrOXYzine PAMOATE 50 MG CAPSULE (FP) PO PRN ×2 (09:53→21:29)
[2018-06-22] MEDS ORDERED: PT OWN MED DRAWER 7, Y5N ONE (12:19)
--- NOTE | 2018-06-22 14:49 | PN ---
Psychiatric Progress Note Vital Signs: Vital Signs Period Temp Pulse Resp BP Sys/Guerin Pulse Ox Last 24 Hr 97.6 F 76-88 - 123-153/83-87 Date of Session: 06/22/18 Chief Complaint:: Discharge Note HPI: Patient addressing Opioid and Sedative Dependence comorbid with Substance- Induced Mood Disorder and Substance-Induced Sleep Disorder ROS: HTN, HLD, Colitis, AKD were medically managed Current Medications: Active Medications Generic Name Dose Route Start Last Admin Trade Name Freq PRN Reason Stop Dose Admin Acetaminophen 650 mg 06/07/18 19:33 Tylenol - PO Q4H PRN FEVER Al Hydroxide/Mg Hydroxide 30 ml 06/07/18 19:33 06/19/18 19:58 Mylanta Oral Suspension - PO 30 ml Q6H PRN Administration DYSPEPSIA Amlodipine Besylate 5 mg 06/08/18 10:00 06/22/18 09:52 Norvasc - PO 5 mg DAILY BYRON Administration Atorvastatin Calcium 10 mg 06/07/18 22:00 06/21/18 21:41 Lipitor - PO 10 mg HS BYRON Administration Buprenorphine/Naloxone 2 each 06/22/18 06:15 06/22/18 06:12 Suboxone 2mg/0.5mg Sl Film - SL 06/29/18 06:14 Not Given BID@0600,1800 BYRON Calcium Carbonate/Cholecalciferol 1 tab 06/08/18 10:00 06/22/18 09:51 Os-Misael 500+D - PO 1 tab DAILY BYRON Administration Cholecalciferol 400 unit 06/08/18 10:00 06/22/18 09:52 Vitamin D3 - PO 400 unit DAILY BYRON Administration Eucalyptus/Menthol/Phenol/Sorbitol 1 each 06/07/18 19:33 Cepastat Lozenge - MM Q4H PRN SORE THROAT Guaifenesin 10 ml 06/07/18 19:33 Robitussin Dm - PO Q6H PRN COUGH Hydroxyzine Pamoate 50 mg 06/07/18 19:33 06/22/18 09:53 Vistaril - PO 50 mg Q6H PRN Administration AGITATION Ibuprofen 400 mg 06/07/18 19:33 Motrin - PO Q6H PRN Pain level 4-6 Loperamide HCl 4 mg 06/07/18 19:33 Imodium - PO Q6H PRN DIARRHEA Magnesium Citrate 300 ml 06/07/18 19:33 Citroma - PO Q48H PRN CONSTIPATION Magnesium Hydroxide 30 ml 06/07/18 19:33 Milk Of Magnesia - PO DAILY PRN CONSTIPATION Melatonin 5 mg 06/07/18 22:00 06/21/18 21:42 Melatonin PO 5 mg HS PRN Administration INSOMNIA Non-Formulary Medication 4.8 gm 06/08/18 13:30 06/22/18 09:51 Mesalamine [Lialda] PO 4.8 gm DAILY BYRON Administration Pantoprazole Sodium 40 mg 06/08/18 10:00 06/22/18 09:51 Protonix - PO 40 mg DAILY BYRON Administration Multivit/Folic Acid/Iron 1 tab 06/08/18 10:00 06/22/18 09:51 Vitamins (Sjr) - PO 1 tab DAILY BYRON Administration Pseudoephedrine/Triprolidine 1 combo 06/07/18 19:33 Actifed - PO TID PRN NASAL CONGESTION Psyllium Hydrophilic Mucilloid 5.85 gm 06/09/18 10:15 06/22/18 09:52 Metamucil (Sugar-Free) - PO 5.85 gm BID BYRON Administration Quinapril HCl 40 mg 06/08/18 10:00 06/22/18 09:52 Accupril - PO 40 mg DAILY BYRON Administration Tamsulosin HCl 0.8 mg 06/11/18 11:53 06/22/18 09:51 Flomax - PO 0.8 mg DAILY@0830 BYRON Administration Thiamine HCl 100 mg 06/07/18 22:00 06/21/18 21:41 Vitamin B1 - PO 100 mg HS BYRON Administration Current Side Effect: No Lab tests ordered: Yes Lab tests reviewed: Yes Provider note:: Patient will complete this program on 06/23/18. He has met his treatment goals and will continue to address his issues in outpatient treatment program at [facility] at [address] [place] [address]. Told handbook writer that from his participation in this program, he has learned the importance of attending AA/NA. He is stable for discharge on 06/23/18. Total face to face time:: 35 Mental Status Exam - Mental Status Exam Alert and Oriented to: Time, Place, Person Cognitive Function: Fair Patient Appearance: Well Groomed Mood: Hopeful, Euthymic Affect: Appropriate Patient Behavior: Cooperative Speech Pattern: Clear Voice Loudness: Normal Thought Process: Intact, Goal Oriented Thought Disorder: Not Present Hallucinations: Denies Suicidal Ideation: Denies Homicidal Ideation: Denies Insight/Judgement: Fair Sleep: Fair Muscle strength/Tone: Normal Gait/Station: Normal Psychiatric Treatment Plan - Problem List (1) Opioid dependence Current Visit: No (2) Sedative hypnotic or anxiolytic dependence Current Visit: No (3) Substance induced mood disorder Current Visit: No (4) Substance-induced sleep disorder Current Visit: No (5) Colitis Current Visit: No (6) Acute kidney failure Current Visit: No Initial treatment plan: Patient will be discharged tomorrow and referred to [facility] for outpatient treatment
--- NOTE | 2018-06-22 16:25 | PN ---
[facility] Progress Note Note: PT DISCHARGING TOMORROW AND WILL BE FOLLOWING UP WITH HIS PMD SUBOXONE 8 MG/2 MG SL DAILY #7 SENT TO [facility] FOR COMMUNICATIONS INTERN PT TO FOLLOW UP WITH AFTERCARE AT [facility] [place]. Vital Signs 06/22/18 09:05 Pulse Rate 88 Blood Pressure 123/83
[2018-06-22] MEDS: MELATONIN 5 MG TABLETS PO PRN (21:29)
[2018-06-22] MEDS: THIAMINE HCL 100 MG TABLET (FP) PO SCH (21:29)
[2018-06-22] MEDS: ATORVASTATIN CA 10 MG TABLET (FP) PO SCH (21:29)
[2018-06-23] MEDS: BUPRENORPHINE/NALOXONE 2 MG/0.5 MG FILM PACKET SL SCH (06:11)
[2018-06-23 06:48] VITALS: BP 148/91; PULSE 71; TEMP 97.4
[2018-06-23] MEDS ORDERED: PT OWN MED DRAWER 7, Y5N ONE (08:47)
[2018-06-23] MEDS: CALCIUM 500MG/VIT-D 200 UNITS COMBO TABLET (FP) PO SCH (09:39)
[2018-06-23] MEDS: amLODIPine BESYLATE 5 MG TABLET (FP) PO SCH (09:39)
[2018-06-23] MEDS: TAMSULOSIN HCL 0.4 MG CAP PO SCH (09:39)
[2018-06-23] MEDS: PANTOPRAZOLE 40 MG TABLET (FP) PO SCH (09:39)
[2018-06-23] MEDS: PRENATAL VITAMINS W/ FOLIC ACID TABLET (FP) PO SCH (09:39)
[2018-06-23] MEDS: PSYLLIUM 5.85 GM PACKET PO SCH (09:40)
[2018-06-23] MEDS: QUINAPRIL HCL 40 MG TABLET (FP) PO SCH (09:40)
[2018-06-23] MEDS: MESALAMINE 4.8 GM PO SCH (09:40)
[2018-06-23] MEDS: CHOLECALCIFEROL (VITAMIN D3) 400 UNIT TABLET (FP) PO SCH (09:40)
== END 2018-06-23 09:45 | disposition home or self-care (01) | DRG 895 ==
LOC: YASAS 15:55 → Y3W 19:55
PROVIDERS: ADMIT Psychiatry & Neurology Psychiatry; ATTEND Psychiatry & Neurology Psychiatry
PROC: HZ42ZZZ Group Counseling for Substance Abuse Treatment, Cognitive-Behavioral (ICD-10-PCS; principal; 2018-06-07)
DX: F11.20 Opioid dependence, uncomplicated (principal); F13.20 Sedative, hypnotic or anxiolytic dependence, uncomplicated; F19.282 Other psychoactive substance dependence with psychoactive substance-induced sleep disorder; N17.9 Acute kidney failure, unspecified; K51.90 Ulcerative colitis, unspecified, without complications; F19.24 Other psychoactive substance dependence with psychoactive substance-induced mood disorder; F43.21 Adjustment disorder with depressed mood; Z63.4 Disappearance and death of family member; N40.1 Benign prostatic hyperplasia with lower urinary tract symptoms; R35.1 Nocturia; E78.00 Pure hypercholesterolemia, unspecified; Z88.0 Allergy status to penicillin
CPT/HCPCS: 36415; 80053; 85027; J0735